=== PATIENT | male | born 1955 | race Caucasian/White ===

== ENCOUNTER 2021-01-24 08:15 | Outpatient (REF) | payer MEDICARE, MEDICAID, SELFPAY ==
[2021-01-24 10:30] LABS: MANUAL DIFF FLAG NO
[2021-01-24 10:56] LABS: Basophils Absolute Auto 0.1 X10*3/uL (0.0-0.2); Eosinophils Absolute Auto 0.2 X10*3/uL (0.0-0.4); Eosinophils Percent Auto 1.9 % (0-4); Hematocrit 42.5 % (42-52); Hemoglobin 13.8 g/dl (14.0-18.0); Imm Gran Abs Auto 0.03 X10*3/uL (0.00-0.03); Imm Gran Pct Auto 0.4 % (0.0-0.4); Lymphocytes Absolute Auto 2.3 X10*3/uL (1.2-4.9); Mean Corpuscular HGB Conc 32.5 g/dl (31.0-36.0); Mean Corpuscular Hemoglobin 29.2 pg (27.0-33.0); Mean Corpuscular Volume 89.9 fL (80-98); Monocytes Absolute Auto 0.5 X10*3/uL (0.1-1.2); Monocytes Percent Auto 6.2 % (2-11); Neutrophils Absolute Auto 4.9 X10*3/uL (2.0-8.3); Neutrophils Percent Auto 61.5 % (45-73); Platelet Count 231 X10*3/uL (160-400); Red Blood Count 4.73 X10*6/uL (4.60-5.80)
[2021-01-24 11:01] LABS: Alanine Aminotransferase 15 U/L (0-40); Albumin Level 4.2 g/dL (3.5-5.0); Alkaline Phosphatase 52 U/L (39-117); Anion Gap 13 (12-20); Aspartate Amino Transferase 17 U/L (5-37); Bilirubin Total 0.7 mg/dL (0.0-1.0); Blood Urea Nitrogen 16 mg/dL (9-16); Calcium 9.3 mg/dL (8.4-10.2); Carbon Dioxide 25 mmol/L (22-29); Chloride 105 mmol/L (96-108); Cholesterol 139 mg/dL; Estimated Glomerular Filt Rate 59; Glucose Fasting 94 mg/dL (60-99); HDL Cholesterol 51 mg/dL; LDL Cholesterol Calculated 75 mg/dl; Potassium 4.3 mmol/L (3.3-5.1); Sodium 139 mmol/L (135-145); Total Protein 6.9 g/dL (6.5-8.0); Triglycerides 65 mg/dL
[2021-01-24 11:11] LABS: TSH reflex Free T4 0.65 uIU/mL (0.32-4.0)
[2021-01-24 12:29] LABS: Prostate Specific Antigen Scr 6.51 ng/mL (<0.05-4.0)
[2021-01-24 13:59] LABS: Glucose Urine UA NEG (NEG); Leukocyte Esterase Urine NEG (NEG); Nitrite Urine NEG (NEG); Urine Blood NEG (NEG); Urine Ketones NEG (NEG); Urine Protein NEG (NEG-TRACE)
[2021-01-24 14:04] LABS: Appearance Urine CLEAR; Color Urine YELLOW
== END 2021-01-24 08:16 | disposition home or self-care (01) ==
LOC: HO.WFDLDS 08:15
PROVIDERS: Visit Provider Family Medicine
DX: Z00.00 Encounter for general adult medical examination without abnormal findings (principal); N40.1 Benign prostatic hyperplasia with lower urinary tract symptoms; R33.8 Other retention of urine; Z12.5 Encounter for screening for malignant neoplasm of prostate
CPT/HCPCS: 36415; 80053; 80061; 81003; 84153; 84443; 85025

== ENCOUNTER → 2021-02-01 14:02 | Outpatient (BNVA) | payer MEDICARE, BC, SELFPAY | PROVIDERS: PCP Family Medicine; Referring Provider Family Medicine; Visit Provider Internal Medicine Cardiovascular Disease | DX: Z01.810 Encounter for preprocedural cardiovascular examination (principal); R94.31 Abnormal electrocardiogram [ECG] [EKG] | CPT/HCPCS: 93005; 99202 ==

== ENCOUNTER → 2021-02-03 12:49 | Outpatient (REF) | payer MEDICARE, BC, SELFPAY ==
--- NOTE | 2021-02-03 12:54 | CA_ITS ---
Transthoracic Echocardiogram Patient (Last, First, Middle): Oumar Rucker, Gender: Male Date of : 1955 Age: 66 Procedure Date: 02/03/2021 Procedure Type: Transthoracic Echocardiogram Location: OP Height: 177.8 cm Weight: 90.72 kg BSA: 2.09 m2 Heart Rate: bpm BP: 120 / 72 mmHg Saw Tailer: ROSALINA Referring MD: Jasen Arias MD Boilermaker: Sixto Anne MD Symptoms: R94.31 - Abnormal electrocardiogram [ECG] [EKG] Study Quality: Fair ECG Rhythm: Sinus Conclusions: - Essentially normal study Findings Left Ventricle Normal left ventricular size, thickness, and systolic function. The visually estimated ejection fraction is between 55-60%. Spectral Doppler is indicative of a normal filling pattern. Right Ventricle Normal right ventricular cavity size and systolic function. Atria The left atrium is normal in size. There is a mobile atrial septum noted. There is no evidence of interatrial shunt. The right atrium is normal in size. Aortic Valve Normal aortic valve structure and function. There is no aortic valve stenosis. There is no aortic valve regurgitation. Mitral Valve Normal mitral valve structure and function. There is trace mitral valve regurgitation. There is no mitral valve stenosis. Pulmonic Valve The pulmonic valve is likely normal. There is trace pulmonic valve regurgitation. Tricuspid Valve Normal tricuspid valve structure. There is trace tricuspid valve regurgitation. The right ventricular systolic pressure is normal. The right ventricular systolic pressure is 30 mmHg. Normal right atrial pressure. There is no evidence of pulmonary hypertension. Great Vessels All visible segments of the aorta are normal in size. The pulmonary artery was not well visualized. Venous The inferior vena cava is normal in size and collapses greater than 50% with inspiration. Pericardium/Pleural There is no evidence of pericardial effusion. Prior Study Comparison No prior study available for comparison. Measurements M-Mode Liner Measurements Normals - Women/Men AOV Cusps: 2.60 1.5-2.6 cm/m2 2D Linear Measurements IVSd: 0.54 0.6-0.9/0.6-1.0 cm LVIDd: 5.51 3.9-5.3/4.2-5.9 cm LVIDd Index: 2.64 2.4-3.2/2.2-3.1 cm/m2 LVIDs: 3.88 2.0-3.6 cm LVPWd: 0.68 0.7-1.1 cm Ao Root: 3.30 2.1-3.5 cm LA Diam: 3.60 2.7-3.8/3.0-4.0 cm LAIDs Index: 1.72 1.5-2.3 cm/m2 LV Mass: 143.89 67-162/88-224 g LV Mass Index: 68.85 43-95/49-115 g/m2 LVOT Diam: 2.20 3.0+(-)1.3 cm 2D Systolic Function EF 4C: 47.70 >55% EF 2C: 48.90 >55% Mitral Valve MV Pk E: 0.75 MV PK A: 0.74 MV Decel Time: 267.00 E/A: 1.00 E'Lateral: 10.30 E'Medial: 5.11 E/E' Med: 14.60 E/E' Lat: 7.20 PHT: 78.00 MVA PHT: 2.82 Decel [place]: 2.80 Aortic Valve AoV Pk Ru: 1.54 AoV Mn Ru: 1.01 AoV VTI: 0.32 AoV Pk Grad: 9.00 Aov Mn Grad: 5.00 CHARLY Cont.VTI: 2.47 LVOT LVOT Pk Ru: 0.99 LVOT Mn Ru: 0.63 LVOT VTI: 0.21 LVOT Pk Grad: 4.00 LVOT Mn Grad: 2.00 LVOT Diam: 2.20 LVOT Area: 3.80 Diastolic Function MV Pk E: 0.75 MV Pk A: 0.74 E/A: 1.00 E'Medial: 5.11 E/E' Med: 14.60 E' Laterial: 10.30 E/E' Lat: 7.20 Tricuspid Valve TR Pk Ru: 2.37 TR Pk Grad: 22.00 RA Press: 8.00 RVSP: 30.00 Great Vessels Aorta Ao Root-2D: 3.30 2.0-3.7 cm Ao Asc: 3.50 2.1-3.4 cm Ao Arch: 2.90 Pulmonary Valve PV Pk Ru: 1.14 Peak PV Grad: 5.00 Updated in Other Vendor System with Status of Final Sixto Anne MD electronically signed on 02/04/2021 1:24:54 PM with status of Final
== END ==
LOC: HO.CARD 12:49
PROVIDERS: PCP Family Medicine; Visit Provider Family Medicine
DX: R94.31 Abnormal electrocardiogram [ECG] [EKG] (principal)
CPT/HCPCS: 93306

== ENCOUNTER 2021-06-16 09:15 | Outpatient (REF) | payer MEDICARE, SELFPAY ==
[2021-06-16 11:36] LABS: Hematocrit 44.9 % (42-52); Hemoglobin 14.8 g/dl (14.0-18.0); Mean Corpuscular Hemoglobin 29.1 pg (27.0-33.0); Mean Corpuscular Volume 88.2 fL (80-98); Mean Platelet Volume 10.8 fL (9.4-12.4); Platelet Count 223 X10*3/uL (160-400); Red Blood Count 5.09 X10*6/uL (4.60-5.80); Red Cell Distribution Width 12.3 % (11.0-16.0); White Blood Count 8.8 X10*3/uL (4.8-10.8)
[2021-06-16 12:00] LABS: Anion Gap 14 (12-20); Blood Urea Nitrogen 14 mg/dL (9-16); Calcium 9.7 mg/dL (8.4-10.2); Carbon Dioxide 24 mmol/L (22-29); Chloride 107 mmol/L (96-108); Estimated Glomerular Filt Rate > 60; Glucose Fasting 95 mg/dL (60-99); Potassium 4.5 mmol/L (3.3-5.1); Sodium 140 mmol/L (135-145)
== END 2021-06-16 09:16 | disposition home or self-care (01) ==
LOC: HO.WFDLDS 09:15
PROVIDERS: Visit Provider Hospitalist
DX: R03.0 Elevated blood-pressure reading, without diagnosis of hypertension (principal); R53.83 Other fatigue; Z87.448 Personal history of other diseases of urinary system
CPT/HCPCS: 36415; 80048; 85027

== ENCOUNTER 2022-05-25 09:03 | Outpatient (REF) | payer MEDICARE, SELFPAY ==
[2022-05-25 11:11] LABS: MANUAL DIFF FLAG NO
[2022-05-25 11:24] LABS: Basophils Absolute Auto 0.1 X10*3/uL (0.0-0.2); Basophils Percent Auto 0.9 % (0-2); Eosinophils Absolute Auto 0.3 X10*3/uL (0.0-0.4); Eosinophils Percent Auto 2.9 % (0-4); Hematocrit 46.1 % (42.0-52.0); Hemoglobin 15.4 g/dl (14.0-18.0); Imm Gran Abs Auto 0.02 X10*3/uL (0.00-0.03); Imm Gran Pct Auto 0.2 % (0.0-0.4); Lymphocytes Absolute Auto 2.6 X10*3/uL (1.2-4.9); Lymphocytes Percent Auto 29.7 % (20-40); Mean Corpuscular HGB Conc 33.4 g/dl (31.0-36.0); Mean Corpuscular Hemoglobin 29.1 pg (27.0-33.0); Mean Platelet Volume 10.5 fL (9.4-12.4); Monocytes Absolute Auto 0.6 X10*3/uL (0.1-1.2); Monocytes Percent Auto 6.5 % (2-11); Neutrophils Absolute Auto 5.3 x10*3/uL (2.0-8.3); Neutrophils Percent Auto 59.8 % (45-73); Platelet Count 255 X10*3/uL (160-400); White Blood Count 8.9 X10*3/uL (4.8-10.8)
[2022-05-25 11:42] LABS: Appearance Urine Clear; Color Urine Yellow; Glucose Urine UA Negative (Negative); Leukocyte Esterase Urine Negative (Negative); Nitrite Urine Negative (Negative); Urine Blood Negative (Negative); Urine Ketones Negative (Negative); Urine Protein Negative (Neg-Trace)
[2022-05-25 11:45] LABS: Alanine Aminotransferase 22 U/L (0-40); Albumin Level 4.4 g/dL (3.5-5.0); Alkaline Phosphatase 51 U/L (39-117); Anion Gap 14 (12-20); Aspartate Amino Transferase 17 U/L (5-37); Bilirubin Total 0.6 mg/dL (0.0-1.0); Blood Urea Nitrogen 17 mg/dL (9-16); Calcium 9.8 mg/dL (8.4-10.2); Carbon Dioxide 25 mmol/L (22-29); Chloride 104 mmol/L (96-108); Cholesterol 172 mg/dL; Estimated Glomerular Filt Rate 58; Glucose Fasting 93 mg/dL (60-99); HDL Cholesterol 54 mg/dL; LDL Cholesterol Calculated 102 mg/dl; Potassium 4.4 mmol/L (3.3-5.1); Sodium 139 mmol/L (135-145); Triglycerides 83 mg/dL
[2022-05-25 12:06] LABS: Prostate Specific Antigen Scr 2.01 ng/mL (<0.05-4.0); TSH reflex Free T4 1.07 uIU/mL (0.32-4.0)
[2022-05-25 12:24] LABS: Microalbumin Urine < 5.0 mg/L
== END 2022-05-25 09:04 | disposition home or self-care (01) ==
LOC: HO.WFDLDS 09:03
PROVIDERS: Visit Provider Family Medicine
DX: Z00.00 Encounter for general adult medical examination without abnormal findings (principal); Z12.5 Encounter for screening for malignant neoplasm of prostate; I10 Essential (primary) hypertension
CPT/HCPCS: 36415; 80053; 80061; 81003; 82043; 84153; 84443; 85025

== ENCOUNTER 2023-03-15 10:59 | Outpatient (AMB) | payer MEDICARE, SELFPAY ==
--- NOTE | 2023-03-15 11:21 | A.OFFPC_ITS ---
Vital Signs 03/15/23 11:22 Height 5 ft 10 in Weight 195 lb BMI 28.0 BP 120/72 Blood Pressure Location Lt brachial Position Sitting Pulse 71 Pulse Source Pulse Oximeter Pulse Oximetry (%) 99 Oxygen Delivery Method Room Air Intake Visit Reasons: [facility] 03/07/23 - Potential Stroke Intake Note: Patient is here for hospital follow up, he states he had a high fever, deleirious, after many tests, think he may not have had a stroke. He may have had an infection. Allergies No Known Allergies Allergy (Verified 03/15/23 11:28) Tobacco use date assessed: 03/15/23 Fall risk assessment: No Falls in past year Last assessed Fall Risk: 03/15/23 Dental Screening Dental Screen Date: 03/15/23 Did you have a dental visit in the last 12 months?: Yes Did you have a dental problem in the last 6 months where you did not have access to dental care?: No Was dental information given to patient?: No HPI [facility] 03/07/23 - Potential Stroke HPI Details Pt present to f/u [facility] visit 03/07/23 for a potential stroke. He had presented to ED for possible strokelike symptoms. Fire dept. had found pt in his bedroom with garbled speech, L sided facial droop and L sided leg weakness. Pt had acute delirium of unknown etiology. He reports they had sent him home with antibiotics. Blood pressure today is 120/72. He is on lisinopril 10mg daily. [facility] Family History Mother No problems noted. Father No problems noted. Social History Housing: Other Housing Other:: Mobile home Alcohol intake: former Patient Tobacco Use Status: Former Tobacco user e-Cigarette/Vaping Use: Never Used Second Hand Smoke Exposure: No service: No Current occupational status: retired Current occupational exposures/hazards: No Cognitive needs: No Hearing needs: No Vision needs: No Questionnaire PHQ-9 Over the last 2 weeks, how often have you been bothered by any of the following problems? 1. Little interest or pleasure in doing things: nearly every day 2. Feeling down, depressed, or hopeless: not at all 3. Trouble falling or staying asleep, or sleeping too much: nearly every day 4. Feeling tired or having little energy: nearly every day 5. Poor appetite or overeating: nearly every day 6. Feeling bad about yourself - or that you are a failure or have let yourself or your family down: not at all 7. Trouble concentrating on things, such as reading the newspaper or watching television: not at all 8. Moving or speaking so slowly that other people could have noticed. Or the opposite - being so fidgety or restless that you have been moving around a lot more than usual: not at all 9. Thoughts that you would be better off or of hurting yourself in some way: not at all Total score: 12 Source: Developed by Drs. Aniceto wSift, Mila Bishop, Jeovanny Treviño and colleagues, with an educational bandar from [employer]. Thrive Questionnaire Date Thrive assessed: 11/03/22 I am a: Patient What is your living situation today?: I have a steady place to live Within the past 12 months, did the food you bought not last and you didn't have the money to get more?: Never true Within the past 12 months, did you worry whether your food would run out before you got money to buy more?: Never true Do you have trouble paying for medicines?: No Do you have trouble getting transportation to medical appointments?: No Do you have trouble paying your heating and electricity bill?: No Do you have trouble taking care of your child, family member or friend?: No Do you have trouble with day-to-day activities such as bathing, preparing meals, shopping, managing finances, etc.?: No Are you currently unemployed and looking for a job?: No Are you interested in more education?: No AUDIT C Alcohol Use Questionnaire (AUDIT-C) 1. How often do you have a drink containing alcohol?: Never 3. How often do you have six or more drinks on one occasion?: Never Total Score: 0 UNRULY-7 AMB Questionnaire UNRULY-7 Date UNRULY - 7 assessed: 11/03/22 Feeling nervous, anxious, or on edge: 0 = Not at all Not being able to stop or control worryin = Not at all Worrying too much about different things: 0 = Not at all Trouble relaxin = Not at all Being so restless that it is hard to sit still: 0 = Not at all Becoming easily annoyed or irritable: 0 = Not at all Feeling afraid as if something awful might happen: 0 = Not at all Total UNRULY-7 score (0-4 normal; 5-9 mild; 10-14 moderate; 15-21 severe): 0 Source: Developed by Drs. Aniceto Swift, Mila Bishop, Jeovanny Treviño and colleagues, with an educational bandar from [employer]. Review of Systems Const Denies chills, Denies fatigue, Denies fever(s), Denies headache(s) and Denies weakness ENT Denies dizziness and Denies headache(s) Card Denies dyspnea Resp Denies cough, Denies dyspnea, Denies wheezing and Denies other (shortness of breath) Musc Denies numbness and Denies tingling Neuro Denies dizziness, Denies headache(s), Denies numbness, Denies tingling and Denies weakness Psych Denies anxiety and Denies depression Endo Denies fatigue Aller/Immun Denies wheezing Physical exam (Primary Care) Vital Signs: Last Vital Signs Pulse 71 03/15/23 11:22 BP 120/72 03/15/23 11:22 Pulse Ox 99 03/15/23 11:22 Oxygen Delivery Method Room Air 03/15/23 11:22 BMI result Body Mass Index 28.0 Tobacco/Smoking Status: Tobacco use Status Tobacco use date assessed 03/15/23 03/15/23 11:29 Patient Tobacco Use Status Former Tobacco user 03/15/23 11:29 e-Cigarette/Vaping Use Never Used 03/15/23 11:29 PHQ-9: PHQ-9 Score PHQ-9: Total score 12 03/15/23 12:24 Thrive Assessment: Date of Thrive Assessment Date Thrive assessed 11/03/22 03/15/23 11:29 Const General: well developed; No acute distress Nutritional Appearance: well nourished Orientation/consciousness: patient oriented x3 HENMT Head: Yes normocephalic and Yes atraumatic Eyes General: appearance normal, both eyes and all related structures Pupils: Equal, round and reactive pupils present EOM: EOMs intact bilaterally Resp Effort & Inspection: normal respiratory effort Neuro General: patient oriented x3 and gait normal Cranial nerves: Yes Equal, round and reactive pupils present Psych Affect: normal affect Assessment and Plan Assessment & Plan (1) Encephalopathy: Code(s): G93.40 - Encephalopathy, unspecified Plan: Patient presents for hospital discharge follow-up after being brought to the hospital with altered mental status and concern for CVA. Ultimately diagnosed with encephalopathy and this was apparently secondary to a bacterial infection after dental work. Question of sepsis as well. I do not have his hospital discharge follow-up at this time. Patient says he was treated with IV antibiotics and discharged with oral antibiotics which she has completed. He is feeling well. This appears resolved (2) Altered mental status: Code(s): R41.82 - Altered mental status, unspecified Plan: As above Resolved (3) Hypertension: Code(s): I10 - Essential (primary) hypertension Plan: Blood pressure is controlled. Goal is less than 140/90 Continue current medication regimen Coding Level of Care Code Est Pt Level 3 (66831) Diagnoses Encephalopathy G93.40 Altered mental status R41.82 Hypertension I10
[2023-03-15 11:22] VITALS: BP 120/72; PULSE 71; O2SAT 99; BMI 28.0
== END 2023-03-15 12:38 | disposition home or self-care (01) ==
PROVIDERS: PCP Family Medicine; Visit Provider Family Medicine
DX: G93.40 Encephalopathy, unspecified (principal); R41.82 Altered mental status, unspecified; I10 Essential (primary) hypertension
CPT/HCPCS: 99213

== ENCOUNTER 2023-05-24 09:21 | Outpatient (REF) | payer MEDICARE, SELFPAY ==
[2023-05-24 11:36] LABS: MANUAL DIFF FLAG NO
[2023-05-24 11:48] LABS: Basophils Absolute Auto 0.1 X10*3/uL (0.0-0.2); Basophils Percent Auto 1.1 % (0-2); Eosinophils Absolute Auto 0.4 X10*3/uL (0.0-0.4); Eosinophils Percent Auto 4.5 % (0-4); Hematocrit 44.9 % (42.0-52.0); Hemoglobin 14.9 g/dl (14.0-18.0); Imm Gran Abs Auto 0.03 X10*3/uL (0.00-0.03); Imm Gran Pct Auto 0.4 % (0.0-0.4); Lymphocytes Absolute Auto 2.2 X10*3/uL (1.2-4.9); Lymphocytes Percent Auto 25.6 % (20-40); Mean Corpuscular HGB Conc 33.2 g/dl (31.0-36.0); Mean Corpuscular Hemoglobin 29.4 pg (27.0-33.0); Mean Corpuscular Volume 88.6 fL (80.0-98.0); Mean Platelet Volume 10.5 fL (9.4-12.4); Monocytes Absolute Auto 0.6 X10*3/uL (0.1-1.2); Neutrophils Absolute Auto 5.2 x10*3/uL (2.0-8.3); Neutrophils Percent Auto 61.4 % (45-73); Platelet Count 277 X10*3/uL (160-400); Red Blood Count 5.07 X10*6/uL (4.60-5.80); Red Cell Distribution Width 12.9 % (11.0-16.0); White Blood Count 8.5 X10*3/uL (4.8-10.8)
[2023-05-24 12:20] LABS: Alanine Aminotransferase 16 U/L (0-40); Albumin Level 4.3 g/dL (3.5-5.0); Alkaline Phosphatase 44 U/L (39-117); Anion Gap 11 (12-20); Aspartate Amino Transferase 14 U/L (5-37); Bilirubin Total 0.5 mg/dL (0.0-1.0); Blood Urea Nitrogen 16 mg/dL (9-16); Calcium 9.8 mg/dL (8.4-10.2); Carbon Dioxide 25 mmol/L (22-29); Chloride 107 mmol/L (96-108); Cholesterol 168 mg/dL (<200); Estimated Glomerular Filt Rate > 60; Glucose Fasting 99 mg/dL (60-99); HDL Cholesterol 60 mg/dL (>40); LDL Cholesterol Calculated 97 mg/dL (<100); Potassium 4.4 mmol/L (3.3-5.1); Sodium 139 mmol/L (135-145); Total Protein 7.3 g/dL (6.5-8.0); Triglycerides 56 mg/dL (<150)
[2023-05-24 12:21] LABS: Appearance Urine Clear; Color Urine Yellow; Glucose Urine UA Negative (Negative); Leukocyte Esterase Urine Negative (Negative); Nitrite Urine Negative (Negative); Urine Blood Negative (Negative); Urine Ketones Negative (Negative); Urine Protein Negative (Neg-Trace)
[2023-05-24 12:24] LABS: TSH reflex Free T4 1.03 uIU/mL (0.32-4.0)
[2023-05-24 12:38] LABS: Folate 11.5 ng/mL (> or = 4.0); Prostate Specific Antigen Scr 3.44 ng/mL (<0.05-4.0); Vitamin B12 456 pg/mL (200-900)
[2023-05-24 13:06] LABS: Creatinine Urine 32.83 mg/dL; Microalbumin Urine < 5.0 mg/L
== END 2023-05-24 09:22 | disposition home or self-care (01) ==
LOC: HO.WFDLDS 09:21
PROVIDERS: Visit Provider Family Medicine
DX: Z00.00 Encounter for general adult medical examination without abnormal findings (principal); I10 Essential (primary) hypertension; E53.8 Deficiency of other specified B group vitamins; Z12.5 Encounter for screening for malignant neoplasm of prostate
CPT/HCPCS: 36415; 80053; 80061; 81003; 82043; 82570; 82607; 82746; 84153; 84443; 85025

== ENCOUNTER 2023-12-13 15:24 | Outpatient (AMB) | payer MEDICARE, SELFPAY ==
--- NOTE | 2023-12-13 15:27 | A.OFFPC_ITS ---
Vital Signs 12/13/23 15:31 Height 5 ft 10 in Weight 207 lb BMI 29.7 BP 122/70 Blood Pressure Location Lt brachial Position Sitting Pulse 63 Pulse Source Pulse Oximeter Pulse Oximetry (%) 97 Oxygen Delivery Method Room Air Intake Visit Reasons: referral for colonoscopy Intake Note: Patient is here for referral for colonoscopy, and would like to talk about prescription for viagra. Allergies No Known Allergies Allergy (Verified 12/13/23 15:33) Medication List - Last Reconciled 12/13/23 by Jasen Arias MD lisinopril 10 mg PO DAILY 30 days Tobacco use date assessed: 12/13/23 Fall risk assessment: No Falls in past year Last assessed Fall Risk: 12/13/23 Dental Screening Dental Screen Date: 12/13/23 Did you have a dental visit in the last 12 months?: Yes Did you have a dental problem in the last 6 months where you did not have access to dental care?: No Was dental information given to patient?: Patient has dentist HPI referral for colonoscopy HPI Details 68 y/o male presents to f/u [facility]. Pt states he would like to talk about a prescription for viagra. Blood pressure today 122/70. He is on lisinopril 10mg daily. [facility] Family History Mother No problems noted. Father No problems noted. Social History Housing: Other Housing Other:: Mobile home Alcohol intake: former Patient Tobacco Use Status: Former Tobacco user e-Cigarette/Vaping Use: Never Used Second Hand Smoke Exposure: No service: No Current occupational status: retired Current occupational exposures/hazards: No Cognitive needs: No Hearing needs: No Vision needs: No Questionnaire Thrive Questionnaire Date Thrive assessed: 11/03/22 UNRULY-7 AMB Questionnaire UNRULY-7 Date UNRULY - 7 assessed: 11/03/22 Source: Developed by Drs. Aniceto Swift, Mila Bishop, Jeovanny Treviño and colleagues, with an educational bandar from [employer]. Review of Systems Const Denies chills, Denies fatigue, Denies fever(s), Denies headache(s) and Denies weakness ENT Denies dizziness and Denies headache(s) Card Denies chest pain, Denies lightheadedness, Denies dyspnea and Denies other (Palpitations) Resp Denies cough, Denies dyspnea, Denies wheezing and Denies other ( shortness of breath) Musc Denies numbness and Denies tingling Neuro Denies dizziness, Denies headache(s), Denies numbness, Denies tingling, Denies paresthesias and Denies weakness Psych Denies anxiety and Denies depression Endo Denies fatigue Aller/Immun Denies wheezing Physical exam (Primary Care) Vital Signs: Last Vital Signs Pulse 63 12/13/23 15:31 BP 122/70 12/13/23 15:31 Pulse Ox 97 12/13/23 15:31 Oxygen Delivery Method Room Air 12/13/23 15:31 BMI result Body Mass Index 29.7 Tobacco/Smoking Status: Tobacco use Status Tobacco use date assessed 12/13/23 12/13/23 15:36 Patient Tobacco Use Status Former Tobacco user 12/13/23 15:31 e-Cigarette/Vaping Use Never Used 12/13/23 15:31 Thrive Assessment: Date of Thrive Assessment Date Thrive assessed 11/03/22 12/13/23 15:31 Const General: no acute distress and well developed Nutritional Appearance: well nourished Orientation/consciousness: patient oriented x3 HENMT Head: Yes normocephalic and Yes atraumatic Eyes General: appearance normal, both eyes and all related structures Pupils: Equal, round and reactive pupils present EOM: EOMs intact bilaterally Resp Effort & Inspection: normal respiratory effort Auscultation: clear to auscultation bilaterally Cardio Rate: regular rate Rhythm: regular rhythm Heart sounds: S1 normal heart sound present, S2 normal heart sound present, no gallops, no murmurs and no rubs Neuro General: patient oriented x3 and gait normal Cranial nerves: Yes Equal, round and reactive pupils present Psych Affect: normal affect Assessment and Plan Assessment & Plan (1) Erectile dysfunction: Code(s): N52.9 - Male erectile dysfunction, unspecified Plan: Patient?has?tried?Viagra?which?worked. Will?send?script Risks/benefits?discussed We?can?follow-up?at?his?next?visit (2) Screening for colon cancer: Code(s): Z12.11 - Encounter for screening for malignant neoplasm of colon Plan: Patient?had?a?colonoscopy?in?2019?and?was?advised?to?follow-up?in?5?years. Due?for?follow-up?so?I?have?referred?him?to?GI?at?[facility] [place] (3) Hypertension: Code(s): I10 - Essential (primary) hypertension Plan: Blood?pressure?is?controlled.??Goal?is?less?than?140/90 Patient?notes?that?his?blood?pressure?does?not?seem?to?worsen?much?when?he?does? not?take?the?medication. 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 Orders: Orders Comprehensive [place]. Panel Fast Today Z00.00 - Encounter for general adult medical examination without abnormal findings Complete Blood Count Auto Diff Today Z00.00 - Encounter for general adult medical examination without abnormal findings Lipid Panel Today Z00.00 - Encounter for general adult medical examination without abnormal findings UA and rflx microscopic Today Z00.00 - Encounter for general adult medical examination without abnormal findings Microalbumin, Random (w Creat) Today I10 - Essential (primary) hypertension TSH reflex Free T4 Today Z00.00 - Encounter for general adult medical examina tion without abnormal findings Prostate Specific Antigen Scr Today Z12.5 - Encounter for screening for malignant neoplasm of prostate Referrals Gastroenterology Referral Z12.11 - Encounter for screening for malignant neoplasm of colon Medications: New sildenafil (Viagra) administer 30 minutes to 4 hours before activity 100 mg PO DAILY 30 days PRN 30 tabs 4RF sexual activity Coding Level of Care Code Est Pt Level 4 (87829) Diagnoses Erectile dysfunction N52.9 Screening for colon cancer Z12.11 Hypertension I10
[2023-12-13 15:31] VITALS: BP 122/70; PULSE 63; O2SAT 97; BMI 29.7
== END 2023-12-13 16:28 | disposition home or self-care (01) ==
PROVIDERS: PCP Family Medicine; Visit Provider Family Medicine
DX: N52.9 Male erectile dysfunction, unspecified (principal); Z12.11 Encounter for screening for malignant neoplasm of colon; I10 Essential (primary) hypertension
CPT/HCPCS: 99214

== ENCOUNTER 2024-02-25 10:25 | Outpatient (AMB) | payer MEDICARE, SELFPAY ==
--- NOTE | 2024-02-25 10:27 | A.OFFPC_ITS ---
Vital Signs 02/25/24 10:28 Height 5 ft 10 in Weight 205 lb BMI 29.4 BP 128/70 Blood Pressure Location Lt brachial Position Sitting Pulse 71 Pulse Source Pulse Oximeter Pulse Oximetry (%) 97 Oxygen Delivery Method Room Air Intake Visit Reasons: Extended exam with f/u labs and health maint Intake Note: Patient is here for extended exam, and follow up on labs and medication, but did not get his labs done. Allergies No Known Allergies Allergy (Verified 12/13/23 15:33) Tobacco use date assessed: 12/13/23 Fall risk assessment: No Falls in past year Last assessed Fall Risk: 02/25/24 Dental Screening Dental Screen Date: 12/13/23 HPI Extended exam with f/u labs and health maint HPI Details 69 y/o male presents for an extended exa m with f/u labs and health maintenance. No recent labs to review. Blood pressure today 128/70. He is on lisinopril 10mg daily. Trialed sildenafil for ED which he notes does help. He does note he thinks the dose is a little high for him due to rhinitis. HPI Comments History of Present Illness Details Documentation assistance for Jasen Arias MD, was provided by Jairon Singer, Reproduction Production Manager on 02/25/2024 at 10:48 AM EST. I, Dr. Arias, have read, observed, and verified documentation. [facility] [place] Family History Mother No problems noted. Father No problems noted. Social History Housing: Other Housing Other:: Mobile home Alcohol intake: former Patient Tobacco Use Status: Former Tobacco user e-Cigarette/Vaping Use: Never Used Second Hand Smoke Exposure: No service: No Current occupational status: retired Current occupational exposures/hazards: No Cognitive needs: No Hearing needs: No Vision needs: No Questionnaire Thrive Questionnaire Date Thrive assessed: 11/03/22 UNRULY-7 AMB Questionnaire UNRULY-7 Date UNRULY - 7 assessed: 11/03/22 Source: Developed by Drs. Aniceto Swift, Mila Bishop, Jeovanny Treviño and colleagues, with an educational bandar from [employer]. Review of Systems Const Denies chills, Denies fatigue, Denies fever(s), Denies headache(s) and Denies weakness Eyes Denies change in vision ENT Denies dizziness, Denies headache(s), Denies hearing loss, Denies nasal estefania estion, Denies sinus pain, Denies sinus pressure and Denies sore throat Card Denies chest pain, Denies lightheadedness, Denies dyspnea and Denies other (palpitations) Resp Denies cough, Denies dyspnea and Denies wheezing GI Denies abdominal pain, Denies melena, Denies hematochezia, Denies change in bowel habits, Denies dyspepsia and Denies nausea Denies hematuria and Denies dysuria Musc Denies abnormal gait, Denies myalgias, Denies arthralgias, Denies numbness and Denies tingling Skin/Breast Denies rash, Denies unusual bruising and Denies wounds Neuro Denies abnormal gait, Denies dizziness, Denies headache(s), Denies memory loss, Denies numbness, Denies Sensory deficit (Neuro), Denies tingling and Denies weakness Psych Denies anxiety, Denies depression and Denies memory loss Endo Denies cold intolerance, Denies fatigue, Denies heat intolerance, Denies polydipsia and Denies polyuria Jamey/Lymph Denies easy bleeding and Denies easy bruising Aller/Immun Denies wheezing Physical exam (Primary Care) Vital Signs: Last Vital Signs Pulse 71 02/25/24 10:28 BP 128/70 02/25/24 10:28 Pulse Ox 97 02/25/24 10:28 Oxygen Delivery Method Room Air 02/25/24 10:28 BMI result Body Mass Index 29.4 Tobacco/Smoking Status: Tobacco use Status Tobacco use date assessed 12/13/23 02/25/24 10:30 Patient Tobacco Use Status Former Tobacco user 02/25/24 10:30 e-Cigarette/Vaping Use Never Used 02/25/24 10:30 Thrive Assessment: Date of Thrive Assessment Date Thrive assessed 11/03/22 02/25/24 10:30 Const General: no acute distress, well developed, alert and awake Nutritional Appearance: well nourished Orientation/consciousness: patient oriented x3 HENMT Head: Yes normocephalic and Yes atraumatic Ears: hearing grossly normal bilaterally and TM's normal bilaterally General nose exam: Normal external nose present and Normal nares present Mouth: Normal oral and palatal mucosa present and moist mucous membranes Teeth and gingiva: dentition normal Throat: Yes posterior oropharynx normal Eyes General: appearance normal, both eyes and all related structures Pupils: Equal, round and reactive pupils present and Pupil accommodation reflex normal EOM: EOMs intact bilaterally Neck Neck: Yes normal visual inspection, Yes no lymphadenopathy and Yes trachea midline Thyroid: Thyroid normal Carotids: no bruits Lymphatic: no lymphadenopathy noted Chest Chest palpation & inspection: normal inspection of the chest Resp Effort & Inspection: normal respiratory effort Auscultation: clear to auscultation bilaterally Cardio Rate: regular rate Rhythm: regular rhythm Heart sounds: S1 normal heart sound present, S2 normal heart sound present, no gallops, no murmurs and no rubs Bruits: no abdominal aortic bruits and no carotid bruits GI Palpation (GI): No Abdominal aortic bruit present, Soft to palpation, nontender, No hepatosplenomegaly present and No Rebound tenderness present Auscultation: normal bowel sounds General: Yes no CVA tenderness Back/Spine/Pelvis Back: no CVA tenderness Cervical Spine: cervical ROM normal and No Cervical spine tenderness Thoracic/Lumbar Spine: thoraco-lumbar ROM normal, No pain with thoraco-lumbar ROM, No thoracic spinal tenderness and No lumbar spinal tenderness Skin Lesions: no lesions Rashes: no rashes Trauma: no lacerations or abrasions Wounds: no wounds Nails: normal Neuro General: patient oriented x3 Cranial nerves: Yes Equal, round and reactive pupils present Cognition (Neuro): normal cognition Gait exam (Neuro): Normal gait present Motor exam (neuro): 5/5 motor strength present throughout Sensory Exam: No Sensory deficit (Neuro) Deep tendon reflexes (DTR's): Right patellar reflex intensity grade: 2+ and Left patellar reflex intensity grade: 2+ Extrem General: Yes normal to inspection and No edema Psych Appearance: grossly normal Affect: normal affect Attitude: cooperative Thought process: Normal thought process present Assessment and Plan Assessment & Plan (1) Hypertension: Code(s): I10 - Essential (primary) hypertension Plan: Blood?pressure?is?controlled.??Goal?is?less?than?140/90. H owever,?patient?notes?a?dry?cough/tickle?in?his?throat?which?he?associates?with? lisinopril. Will?switch?to?losartan.??May?need?to?adjust?dose (2) Erectile dysfunction: Code(s): N52.9 - Male erectile dysfunction, unspecified Plan: Has?used?sildenafil?which?he?notes?does?help?but?has?multipl e?adverse?effects?such?as?sinus?pain?and?pressure Has?tried?Cialis?in?the?past?and?says?this?helps?with?fewer?side?effects?though? he?does?note?some?calf?cramping?at?20?mg?tablets. Will?trial?Cialis?10?mg (3) Screening for prostate cancer: Code(s): Z12.5 - Encounter for screening for malignant neoplasm of prostate Plan: Patient?notes?that?he?has?had?some?elevated?PSA?levels?in?the?past Recheck?the (4) Screening for colon cancer: Code(s): Z12.11 - Encounter for screening for malignant neoplasm of colon Plan: He?is?scheduled?for?screening?for?colon?cancer?in?April. (5) Adult general medical exam: Code(s): Z00.00 - Encounter for general adult medical examination without abnormal findings Plan: 69-year-old?male?presents?for?an?extended?exam Orders: Orders Lipid Panel Today Z00.00 - Encounter for general adult medical examination without abnormal findings Microalbumin, Random (w Creat) Today I10 - Essential (primary) hypertension Complete Blood Count Auto Diff Today Z00.00 - Encounter for general adult medical examination without abnormal findings TSH reflex Free T4 Today Z00.00 - Encounter for general adult medical examination without abnormal findings UA and rflx microscopic Today Z00.00 - Encounter for general adult medical examination without abnormal findings Comprehensive [place]. Panel Fast Today Z00.00 - Encounter for general adult medical examination without abnormal findings Prostate Specific Antigen Scr Today Z12.5 - Encounter for screening for malignant neoplasm of prostate, Z87.898 - Personal history of other specified conditions Medications: New losartan 25 mg PO DAILY 90 days 90 tabs 3RF tadalafil (Cialis) administer approximately 30min before sexual activity; do not use more than 1 dose per 24hrs 10 mg PO DAILY 30 days PRN 30 tabs 3RF sexual activity Discontinued sildenafil (Viagra) administer 30 minutes to 4 hours before activity Discontinued Reason: Doctor's Order 100 mg PO DAILY 30 days PRN 30 tabs 4RF sexual activity lisinopril Discontinued Reason: Doctor's Order 10 mg PO DAILY 30 days 30 tabs 0RF Coding Level of Care Code Est Pt Level 4 (68924) Diagnoses Hypertension I10 Erectile dysfunction N52.9 Screening for prostate cancer Z12.5 Screening for colon cancer Z12.11 Adult general medical exam Z00.00
[2024-02-25 10:28] VITALS: BP 128/70; PULSE 71; O2SAT 97; BMI 29.4
== END 2024-02-25 11:06 | disposition home or self-care (01) ==
PROVIDERS: PCP Family Medicine; Visit Provider Family Medicine
DX: I10 Essential (primary) hypertension (principal); N52.9 Male erectile dysfunction, unspecified; Z12.5 Encounter for screening for malignant neoplasm of prostate; Z12.11 Encounter for screening for malignant neoplasm of colon; Z00.00 Encounter for general adult medical examination without abnormal findings
CPT/HCPCS: 99214

== ENCOUNTER 2024-02-28 08:10 | Outpatient (REF) | payer MEDICARE, SELFPAY ==
[2024-02-28 11:33] LABS: Appearance Urine Clear; Color Urine Yellow; Glucose Urine UA Negative (Negative); Leukocyte Esterase Urine Negative (Negative); Nitrite Urine Negative (Negative); PH 5.5 (5.0-9.0); Specific Gravity - Urine 1.025 (1.005-1.025); Urine Blood Negative (Negative); Urine Ketones Negative (Negative); Urine Protein Negative (Neg-Trace)
[2024-02-28 11:40] LABS: MANUAL DIFF FLAG NO
[2024-02-28 11:46] LABS: Basophils Absolute Auto 0.1 X10*3/uL (0.0-0.2); Basophils Percent Auto 0.8 % (0-2); Eosinophils Absolute Auto 0.3 X10*3/uL (0.0-0.4); Eosinophils Percent Auto 3.7 % (0-4); Hematocrit 46.4 % (42.0-52.0); Hemoglobin 15.2 g/dl (14.0-18.0); Imm Gran Abs Auto 0.03 X10*3/uL (0.00-0.03); Imm Gran Pct Auto 0.4 % (0.0-0.4); Lymphocytes Percent Auto 25.2 % (20-40); Mean Corpuscular HGB Conc 32.8 g/dl (31.0-36.0); Mean Corpuscular Hemoglobin 29.2 pg (27.0-33.0); Mean Corpuscular Volume 89.2 fL (80.0-98.0); Mean Platelet Volume 10.3 fL (9.4-12.4); Monocytes Absolute Auto 0.5 X10*3/uL (0.1-1.2); Monocytes Percent Auto 6.7 % (2-11); Neutrophils Percent Auto 63.2 % (45-73); Platelet Count 234 X10*3/uL (160-400); Red Cell Distribution Width 12.9 % (11.0-16.0); White Blood Count 7.9 X10*3/uL (4.8-10.8)
[2024-02-28 12:24] LABS: Alanine Aminotransferase 15 U/L (0-40); Albumin Level 4.2 g/dL (3.5-5.0); Alkaline Phosphatase 42 U/L (39-117); Anion Gap 12 (12-20); Aspartate Amino Transferase 14 U/L (5-37); Bilirubin Total 0.6 mg/dL (0.0-1.0); Blood Urea Nitrogen 18 mg/dL (9-16); Calcium 9.6 mg/dL (8.4-10.2); Carbon Dioxide 25 mmol/L (22-29); Chloride 106 mmol/L (96-108); Cholesterol 154 mg/dL (<200); Estimated Glomerular Filt Rate > 60; Glucose Fasting 99 mg/dL (60-99); HDL Cholesterol 53 mg/dL (>40); LDL Cholesterol Calculated 92 mg/dL (<100); Sodium 139 mmol/L (135-145); Triglycerides 49 mg/dL (<150)
[2024-02-28 12:35] LABS: Creatinine Urine 155.21 mg/dL; Microalbum/Creatinine Ratio Ur 5.1 ug/mg cr (<30)
[2024-02-28 12:44] LABS: TSH reflex Free T4 0.89 uIU/mL (0.32-4.0)
[2024-02-28 12:45] LABS: Prostate Specific Antigen Scr 3.33 ng/mL (<0.05-4.0)
== END 2024-02-28 08:11 | disposition home or self-care (01) ==
LOC: HO.WFDLDS 08:10
PROVIDERS: Visit Provider Family Medicine
DX: Z00.00 Encounter for general adult medical examination without abnormal findings (principal); I10 Essential (primary) hypertension; Z12.5 Encounter for screening for malignant neoplasm of prostate; Z87.898 Personal history of other specified conditions
CPT/HCPCS: 36415; 80053; 80061; 81003; 82043; 82570; 84153; 84443; 85025

== ENCOUNTER 2024-04-10 13:28 | Outpatient (AMB) | payer MEDICARE, SELFPAY ==
--- NOTE | 2024-04-10 13:38 | MHC.PC.OV ---
Vital Signs 04/10/24 13:53 Height 5 ft 7.4 in Weight 201 lb 4 oz BMI 31.1 BP 120/70 Blood Pressure Location Lt brachial Position Sitting Respiration 18 Pulse 77 Pulse Source Pulse Oximeter Temp 97.6 F Temp Source Oral Pulse Oximetry (%) 77 L Oxygen Delivery Method Room Air Intake Visit Reasons: Fever for 6 days now Intake Note: patient states hes had a fever for 6days he had a dental procedure on the and hasnt been feeling well 3days after this. pt felt light headed fever ,nausea 100.5. he is currently still taking his antibiotics just incase it is an infection. Allergies No Known Allergies Allergy (Verified 04/10/24 13:44) Tobacco use date assessed: 12/13/23 Dental Screening Dental Screen Date: 12/13/23 HPI Fever for 6 days now HPI Details Pt presents today with complaints of a fever. Also discussing labs. Labs drawn 02/28/24. Reviewed labs with pt. Triglycerides 49. TC 154. LDL 92. HDL 53. PSA level 3.33. Had been elevated before at 6.51 on 01/24/21. Notes he had a dental procedure on the . He reports lightheadedness, fever, nausea. Denies any coughing/shortness of breath. [facility] Family History Mother No problems noted. Father No problems noted. Social History Housing: Other Housing Other:: Mobile home Alcohol intake: former Patient Tobacco Use Status: Former Tobacco user e-Cigarette/Vaping Use: Never Used Second Hand Smoke Exposure: No service: No Current occupational status: retired Current occupational exposures/hazards: No Cognitive needs: No Hearing needs: No Vision needs: No Questionnaire Thrive Questionnaire Date Thrive assessed: 11/03/22 UNRULY-7 AMB Questionnaire UNRULY-7 Date UNRULY - 7 assessed: 11/03/22 Source: Developed by Drs. Aniceto Swift, Mila Bishop, Jeovanny Treviño and colleagues, with an educational bandar from [employer]. Review of Systems Const Denies fatigue, Reports fever(s), Denies headache(s) and Denies weakness ENT Denies dizziness and Denies headache(s) Card Reports lightheadedness and Denies dyspnea Resp Denies cough, Denies dyspnea, Denies wheezing and Denies other ( shortness of breath) GI Reports nausea Musc Denies numbness and Denies tingling Neuro Denies dizziness, Denies headache(s), Denies numbness, Denies tingling, Denies paresthesias and Denies weakness Psych Denies anxiety and Denies depression Endo Denies fatigue Aller/Immun Denies wheezing Physical exam (Primary Care) Tobacco/Smoking Status: Tobacco use Status Tobacco use date assessed 12/13/23 04/10/24 13:40 Patient Tobacco Use Status Former Tobacco user 04/10/24 13:40 e-Cigarette/Vaping Use Never Used 04/10/24 13:40 Thrive Assessment: Date of Thrive Assessment Date Thrive assessed 11/03/22 04/10/24 13:40 Const General: no acute distress and well developed Nutritional Appearance: well nourished Orientation/consciousness: patient oriented x3 HENMT Head: Yes normocephalic and Yes atraumatic Eyes General: appearance normal, both eyes and all related structures Pupils: Equal, round and reactive pupils present EOM: EOMs intact bilaterally Resp Effort & Inspection: normal respiratory effort Auscultation: clear to auscultation bilaterally Cardio Rate: regular rate Rhythm: regular rhythm Heart sounds: S1 normal heart sound present, S2 normal heart sound present, no gallops, no murmurs and no rubs Neuro General: patient oriented x3 and gait normal Cranial nerves: Yes Equal, round and reactive pupils present Psych Affect: normal affect Assessment and Plan Assessment & Plan (1) Fever: Code(s): R50.9 - Fever, unspecified Plan: Fever?x6?days?and?patient?had?dental?work?recently. Today?no?fever.??Heart?rate?and?blood?pressure?are?normal Patient?has?had?dental?work?and?sutures?in?his?gums.??Is?currently?being?treated?for?an?infection?by?his?dentist?and?had?amoxicillin?switched?to?Augmentin. Dental?infection?is?most?likely?cause?for?his?feeling?feverish.??However,?can?not?rule?out?viral?infection Checking?COVID/flu/RSV?and?swab?will?be?sent?to?the?lab (2) History of elevated PSA: Code(s): Z87.898 - Personal history of other specified conditions Plan: PSA?had?been?elevated?previously?but more?recently?has?been within normal limits. He has a history of BPH with an obstructive uropathy but these seem to have resolved and he was told by his urologist he no longer needs to be seen regularly since his TURP. (3) Hypertension: Code(s): I10 - Essential (primary) hypertension Plan: Had?switched?lisinopril?to?losartan?due?to?concerns?regarding?a?cough.??He?continued?with?lisinopril?because?he?was?concerned?about?any?adverse?effects?of?losartan. Reassured?patient?that?he?is?likely?to?tolerate?losartan?well?but?can?switch?back?to?lisinopril?if?he?has?any?problems. (4) Fever: Code(s): R50.9 - Fever, unspecified Orders: Orders SARS-CoV2/FLU/RSV Today R50.9 - Fever, unspecified, Z20.822 - Contact with and (suspected) exposure to COVID-19 Coding Level of Care Code Est Pt Level 3 (06942) Diagnoses Fever R50.9 History of elevated PSA Z87.898 Hypertension I10
[2024-04-10 13:53] VITALS: BP 120/70; PULSE 77; RESP 18; TEMP 36.4; O2SAT 77; BMI 31.1
== END 2024-04-10 14:13 | disposition home or self-care (01) ==
LOC: HO.HMGFM 13:28
PROVIDERS: PCP Family Medicine; Visit Provider Family Medicine
DX: R50.9 Fever, unspecified (principal); Z87.898 Personal history of other specified conditions; I10 Essential (primary) hypertension
CPT/HCPCS: 99213

== ENCOUNTER 2024-04-10 15:01 | Outpatient (REF) | payer MEDICARE, SELFPAY ==
[2024-04-10 18:31] LABS: Influenza A PCR NEGATIVE (Negative); Influenza B PCR NEGATIVE (Negative); Resp Syncy Virus RNA Qual PCR NEGATIVE (Negative); SARS COV2 PCR INHOUSE NEGATIVE (Negative)
== END 2024-04-10 15:02 | disposition home or self-care (01) ==
LOC: HO.LAB 15:01
PROVIDERS: Visit Provider Family Medicine
DX: Z20.822 Contact with and (suspected) exposure to COVID-19 (principal); R05.9 Cough, unspecified
CPT/HCPCS: 0241U

== ENCOUNTER 2024-04-18 08:26 | Outpatient (AMB) | payer MEDICARE, SELFPAY ==
--- NOTE | 2024-04-18 08:31 | A.OFFVIS_ITS ---
Vital Signs 04/18/24 08:37 Height 5 ft 10 in Weight 192 lb BMI 27.5 BP 115/61 Blood Pressure Location Lt brachial Position Sitting Pulse 66 Intake Visit Reasons: pre colonoscopy Intake Note: Patient new consult for 3rd pre colonoscopy screening. Patient cc: loose stool, denies any other GI issues. 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 Accompanied by: Self / Same As Patient Allergies amoxicillin Allergy (Unknown, Verified 04/18/24 08:45) Unknown Medication List - Last Reconciled 04/18/24 by Oscar Alejandro MD bisacodyl (Dulcolax (bisacodyl)) 20 mg (4 x 5 mg) PO ONCE 1 day lisinopril 10 mg PO DAILY 90 days polyethylene glycol 3350 (Miralax) 17 grams PO DAILY 1 day tadalafil (Cialis) 10 mg PO DAILY PRN 30 days HPI HPI pre colonoscopy: Details: GI clinic visit for this 69 YM with hypertension and BPH referred by Dr Arias to schedule a colonoscopy for follow-up of colon polyps LABS IN [facility] : 02/2024 reviewed IMAGING STUDIES: No recent GI imaging studies ENDOSCOPIC STUDIES: None in [facility] TODAY'S VISIT: Patient denies symptoms of heartburn, dysphagia, nausea, vomiting, change in appetite. Lost a few lbs this summer after a dental procedure. Denies recent change in bowel habits, constipation, diarrhea, black stools or rectal bleeding. Patient denies major cardiac or pulmonary problems. Snores when he lays on his back and denies sleep apnea Denies ETOH abuse, quitted smoking 24 yrs ago Denies problems with anesthesia in the past. Denies being on chronic anticoagulation. 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 PAST ENDOSCOPIC EVALUATION: Per pt, he had a colonoscopy in 2019 in [place] and a few polyps were removed He states they had recommended a 5 year follow-up - pt will try to obtain a copy of his colonoscopy report. (Initial colon ? in 2008 was negative and pt was advised a 10 yr FU) [facility] Surgical History (Updated 04/18/24 @ 17:15 by Oscar Alejandro MD) History of colonoscopy with polypectomy History of prostate surgery Family History Mother No problems noted. Father No problems noted. Social History Housing: Other Housing Other:: Mobile home Alcohol intake: former Patient Tobacco Use Status: Former Tobacco user e-Cigarette/Vaping Use: Never Used Second Hand Smoke Exposure: No service: No Current occupational status: retired Current occupational exposures/hazards: No Cognitive needs: No Hearing needs: No Vision needs: No Review of Systems Const Denies fever(s), Denies headache(s) and Reports weight loss (recent wt loss of 10 lbs related to dental work) Eyes Denies eye discharge and Denies irritation ENT Reports Normal hearing present, Denies dysphagia, Denies dizziness and Denies headache(s) Card Denies chest pain, Denies leg edema and Denies dyspnea on exertion Resp Denies cough, Denies dyspnea on exertion and Denies wheezing GI Denies abdominal pain, Denies change in bowel habits, Denies dysphagia and Denies heartburn Denies dysuria Musc Denies back pain and Denies arthralgias Skin/Breast Denies pruritus, Denies rash and Denies jaundice Neuro Reports Normal hearing present, Denies Abnormal speech present, Denies dizziness, Denies headache(s) and Denies seizure-like activity Psych Denies anxiety, Denies depression and Denies panic attacks Endo Denies cold intolerance, Denies flushing and Denies heat intolerance Jamey/Lymph Denies easy bleeding and Denies easy bruising Aller/Immun Denies wheezing Physical Exam Vital Signs: Last Vital Signs Pulse 66 04/18/24 08:37 BP 115/61 04/18/24 08:37 BMI result Body Mass Index 27.5 Const General: healthy appearing and no acute distress Nutritional Appearance: overweight Orientation/consciousness: patient oriented x3 Limitations: no limitations HEENT Head: Yes normal to inspection Ears: hearing grossly normal bilaterally Eyes Sclerae: sclerae normal Pupils: Equal, round and reactive pupils present Neck Neck: Yes normal visual inspection Chest Chest palpation & inspection: normal inspection of the chest Resp Effort & Inspection: normal respiratory effort Auscultation: clear to auscultation bilaterally Cardio Palpation: normal PMI Rate: regular rate Rhythm: regular rhythm Heart sounds: S1 normal heart sound present, S2 normal heart sound present and no murmurs GI Palpation (GI): Soft to palpation, nontender and No hepatosplenomegaly present Auscultation: normal bowel sounds Rectal Exam - Male: Yes deferred Skin General skin exam: no rashes or lesions noted Neuro General: patient oriented x3, gait normal and moves all extremities Cranial nerves: Yes Equal, round and reactive pupils present and Yes Normal hearing present Speech: No Abnormal speech present Psych Appearance: grossly normal Mental Status: mental status grossly normal Assessment & Plan Assessment & Plan (1) History of colon polyps: Code(s): Z86.010 - Personal history of colonic polyps Category: Medical Plan 69 YM with hypertension and BPH referred by Dr Arias to schedule a colonoscopy for follow-up of colon polyps Patient denies known family history of colon polyps, colon cancer or other GI malignancies. Per pt, he had a colonoscopy in [address] [place] and a few polyps were removed and a 5 year follow-up colonoscopy was advised Pt will try to obtain a copy of his colonoscopy report. Patient was advised to schedule a colonoscopy for surveillance of colon polyps. Colonoscopy procedure and potential complications including bleeding, perforation and reaction to anesthetics were reviewed with the patient. Patient will be contacted by the surgical schedulers with an appointment for the procedure. Medications: New polyethylene glycol 3350 (Miralax) Mix Miralax with 64 oz(8 cups) of Crystal light. Take 2 tablets of Dulcolax qt 12 pm. Wait to have your 1st bowel movement, then begin drinking Miralax. Drink a glass of Miralax every 10-15 minutes until you are finished. You will drink at least another 4 cups of clear liquid of your choice over the next 2 hours. Please drink as many clear liquids as possible You may have clear liquids up to four hours before your procedure 17 grams PO DAILY 1 day 238 grams 0RF bisacodyl (Dulcolax (bisacodyl)) Take 4 tablets at 12 pm the day before colonoscopy appointment 20 mg (4 x 5 mg) PO ONCE 1 day 4 tabs 0RF colon prep Coding Level of Care Code New Pt Level 4 (98750) Diagnoses History of colon polyps Z86.010 Time Spent (min) 24
[2024-04-18 08:37] VITALS: BP 115/61; PULSE 66; BMI 27.5
== END 2024-04-18 11:35 | disposition home or self-care (01) ==
PROVIDERS: PCP Family Medicine; Visit Provider Internal Medicine Gastroenterology
DX: Z01.818 Encounter for other preprocedural examination (principal); Z12.11 Encounter for screening for malignant neoplasm of colon; Z86.010 Personal history of colon polyps
CPT/HCPCS: 99024

== ENCOUNTER → 2024-04-18 08:26 | Outpatient (BNVA) | payer MEDICARE, SELFPAY | PROVIDERS: PCP Family Medicine; Visit Provider Internal Medicine Gastroenterology | DX: Z01.818 Encounter for other preprocedural examination (principal); Z86.010 Personal history of colon polyps | CPT/HCPCS: 99212 ==

== ENCOUNTER 2024-07-17 09:29 | Outpatient (AMB) | payer MEDICARE, SELFPAY ==
--- NOTE | 2024-07-17 09:44 | A.OFFPC_ITS ---
Vital Signs 07/17/24 09:47 Height 5 ft 10 in Weight 213 lb 8 oz BMI 30.6 BP 128/67 Blood Pressure Location Rt brachial Position Sitting Respiration 16 Pulse 76 Pulse Source Pulse Oximeter Temp 98.2 F Temp Source Temporal Artery Scan Pulse Oximetry (%) 95 Oxygen Delivery Method Room Air Intake Visit Reasons: f/u hypertension Intake Note: f/u for HTN and cough Allergies amoxicillin Allergy (Unknown, Verified 07/17/24 09:45) Unknown Tobacco use date assessed: 12/13/23 Dental Screening Dental Screen Date: 12/13/23 HPI f/u hypertension HPI Details 69 y/o male presents to f/u hypertension . Blood pressure today 128/67, 76p. He is on lisinopril 10mg daily. Has complaints of a cough. Recent viral illness. HPI Comments History of Present Illness Details Documentation assistance for Jasen Arias MD, was provided by Jairon Singer, Behavioral Intervention Specialist on 07/17/2024 at 10:16 AM EST. I, Dr. Arias, have read, observed, and verified documentation. [facility] Surgical History (Updated 04/18/24 @ 17:15 by Oscar Alejandro MD) History of colonoscopy with polypectomy History of prostate surgery Family History Mother No problems noted. Father No problems noted. Social History Housing: Other Housing Other:: Mobile home Alcohol intake: former Patient Tobacco Use Status: Former Tobacco user e-Cigarette/Vaping Use: Never Used Second Hand Smoke Exposure: No service: No Current occupational status: retired Current occupational exposures/hazards: No Cognitive needs: No Hearing needs: No Vision needs: No Questionnaire Thrive Questionnaire Date Thrive assessed: 11/03/22 UNRULY-7 AMB Questionnaire UNRULY-7 Date UNRULY - 7 assessed: 11/03/22 Source: Developed by Drs. Aniceto Swift, Mila Bishop, Jeovanny Treviño and colleagues, with an educational bandar from [employer]. Review of Systems Const Denies chills, Denies fatigue, Denies fever(s), Denies headache(s) and Denies weakness ENT Denies dizziness and Denies headache(s) Card Denies dyspnea Resp Denies cough, Denies dyspnea, Denies wheezing and Denies other (shortness of breath) Musc Denies numbness and Denies tingling Neuro Denies dizziness, Denies headache(s), Denies numbness, Denies tingling and Denies weakness Psych Denies anxiety and Denies depression Endo Denies fatigue Aller/Immun Denies wheezing Physical exam (Primary Care) Vital Signs: Last Vital Signs Temp 98.2 F 07/17/24 09:47 Pulse 76 07/17/24 09:47 Resp 16 07/17/24 09:47 BP 128/67 07/17/24 09:47 Pulse Ox 95 07/17/24 09:47 Oxygen Delivery Method Room Air 07/17/24 09:47 BMI result Body Mass Index 30.6 Tobacco/Smoking Status: Tobacco use Status Tobacco use date assessed 12/13/23 07/17/24 09:48 Patient Tobacco Use Status Former Tobacco user 07/17/24 09:48 e-Cigarette/Vaping Use Never Used 07/17/24 09:48 Thrive Assessment: Date of Thrive Assessment Date Thrive assessed 11/03/22 07/17/24 09:48 Const General: well developed; No acute distress Nutritional Appearance: well nourished Orientation/consciousness: patient oriented x3 HENMT Head: Yes normocephalic and Yes atraumatic Eyes General: appearance normal, both eyes and all related structures Pupils: Equal, round and reactive pupils present EOM: EOMs intact bilaterally Resp Effort & Inspection: normal respiratory effort Neuro General: patient oriented x3 and gait normal Cranial nerves: Yes Equal, round and reactive pupils present Psych Affect: normal affect Coding Level of Care Code Est Pt Level 3 (63554) Diagnoses Hypertension I10 Cough R05.9 Assessment & Plan Assessment & Plan (1) Hypertension: Code(s): I10 - Essential (primary) hypertension Category: Medical Plan: Blood?pressure?is?controlled.??Goal?is?less?than?140/90 Patient?continues?lisinopril?and?does?not?have?a?dry?cough?though?he?notes?he?bojorquez s?a?productive Cough?recently. Had?tried?losartan?but?did?not?tolerate?this Continue?current?medication Encouraged?healthy?diet?and?avoiding?salt/sodium (2) Cough: Code(s): R05.9 - Cough, unspecified Category: Medical Plan: Patient?had?a?fairly?recent?viral?illness?which?has?resolved?but?he? still?has?a?lingering?cough?and?coarse?breath?sounds No?consolidations?heard?on?auscultation Will?give?him?a?short?script?for?prednisone Call?or?return?to?office?if?not?improving?or?worsening Medications: New prednisone 20 mg PO DAILY 5 days 5 tabs 0RF
[2024-07-17 09:47] VITALS: BP 128/67; PULSE 76; RESP 16; TEMP 36.8; O2SAT 95; BMI 30.6
== END 2024-07-17 10:26 | disposition home or self-care (01) ==
LOC: HO.HMCFM 09:29
PROVIDERS: PCP Family Medicine; Visit Provider Family Medicine
DX: I10 Essential (primary) hypertension (principal); R05.9 Cough, unspecified

== ENCOUNTER → 2024-07-17 09:29 | Outpatient (BNVA) | payer MEDICARE, SELFPAY | PROVIDERS: PCP Family Medicine; Visit Provider Family Medicine | DX: I10 Essential (primary) hypertension (principal); R05.9 Cough, unspecified | CPT/HCPCS: 99212 ==

== ENCOUNTER 2024-10-06 08:02 | Day surgery (SDC) | payer MEDICARE, SELFPAY ==
--- OUTSIDE RECORDS SUMMARY | 2024-09-02 11:02 | XMS_ITS ---
Author Name [facility] Organization Unknown History of Medication Use Medication Directions Dispensed Refills Start Date End Date Stat Multiple Vitamins-Minerals (MULTIVITAMIN WITH MINERALS) tablet Take 1 tablet by mouth daily. 06/24/2023 active lisinopril (PRINIVIL,ZeSTRIL) 10 MG tablet 06/24/2023 active Problems Problem Status Onset Date Problem Type Date of Resoluti on Source Increased infection risk active 2016-04-24 ProblemAct [facility] Chronic low back pain active 2016-04-06 ProblemAct [facility] Hyperlipidemia active 2016-04-[address] Acute pain of left knee active 2016-04-06 ProblemAct [facility] Fatigue active 2016-04-24 ProblemAct [facility] Muscle pain active 2016-04-24 ProblemAct [facility] BPH with elevated PSA active 2018-07-24 ProblemAct [facility] Essential (primary) hypertension active 2016-04-06 ProblemAct [facility] Immunizations Vaccine Date Source Lot Number Status Pneumococcal Polysaccharide 23-Valent 07/30/2018 CCT [id number] completed Influenza Inactivated/Split Preservative Free IM 07/30/2018 CCT [id number] completed
[2024-10-02 12:22] VITALS: BMI 27.5
--- OUTSIDE RECORDS SUMMARY | 2024-10-06 08:05 | XMS_ITS | Encounter Summary ---
Author Organization [facility] Address [address] [place] [address] Care Team Providers Care Charger Name Role Phone Unknown Primary Care Provider [phone] Jasen Arias MD Unavailable [phone] Encounter Details Date Type Department Care Team (Late st Contact Info) Description 10/12/2020 Telephone [facility] Urologic Surgery [place] [address] [facility] [address] [place] [phone] Pavan Hernandez MD [address] [facility] [address] [place] [address] Social History Tobacco Use Types Packs/Day Years Used Date Smoking Tobacco: Former Cigarettes 1 8 0 09/03/1989 - 09/03/1997 Smokeless Tobacco: Never Alcohol Use Standard Drinks/Week Comments No 0 (1 standard drink = 0.6 oz pur e alcohol) AUDIT-C Answer Date Recorded Frequency of Alcohol Consumption Never 05/15/2018 Average Number of Drinks Not on file 018 Frequency of Binge Drinking Not on file 05/04 PHQ-2 Answer Date Recorded PHQ-2 Total Score 2 06/30/2019 Sex and Gender Information Value Date Recorded Sex Assigned at Not on file Gender Identity Not on file Sexual Orientation Not on file COVID-19 Exposure Response Date Recorded In the last month, have you been in contact with someone who was confirmed or suspected to have Coronavirus / COVID-19? No / Unsure 10/12/2020 1:08 PM EST documented as of this encounter Miscellaneous Notes * Telephone Encounter - Pavan Hernandez MD - 10/12/2020 11:30 AM EST Oumar Rucker is coming to the office today 1:00 for a urethral catheter placement. Please placehim on my schedule documented in this encounter Plan of Treatment Not on file documented as of this encounter Visit Diagnoses Not on filedocumented in this encounter Care Teams Charger Relationship Specialty Start Date End Date Unknown Unknow Provider Address PCP - General 08/02/20 Jasen Arias MD [address] [place] [address] [place] [address] Physician General Medicine 01/12/21 documented as of this encounter
--- OUTSIDE RECORDS SUMMARY | 2024-10-06 08:05 | XMS_ITS | Encounter Summary ---
Author Organization [facility] Address [address] [place] [address] Care Team Providers Care Non Clinical Advisor Name Role Phone Marty Johnson MD Primary Care Provider Marty Johnson MD Unavailable [phone] Marty Johnson MD Unavailable [phone] Unknown Primary Care Provider [phone] Jasen Arias MD Unavailable [phone] Encounter Details Date Type Department Care Team (Late st Contact Info) Description 09/01/2019 Telephone [facility] Urologic Surgery [place] [address] [facility] [address] [place] [phone] Pavan Hernandez MD [address] [place] [address] [address] [place] [address] Social History Tobacco Use Types Packs/Day Years [...] on file Sexual Orientation Not on file documented as of this encounter Miscellaneous Notes * Telephone Encounter - Kenan Lemos - 09/01/2019 3:28 PM EST Pt calling in for 4k test results I did not see these in his chart Pt would like a call to discus once they come in cb # [phone] documented in this encounter Plan of Treatment Not on file documented as of this encounter Visit Diagnoses Not on filedocumented in this encounter Care Teams Non Clinical Advisor Relationship Specialty Start Date End Date Marty Johnson MD PCP - General Internal Medicine 03/14/18 08/01/20 Marty Johnson MD [address] [id number] PCP - [employer] Attributed 08/03/19 09/02/19 Marty Johnson MD [address] [id number] PCP - [employer] Attributed 10/04/19 12/02/19 Unknown Unknow Provider Address PCP - General 08/02/20 Jasen Arias MD [address] [place] [address] [place] [address] Physician General Medicine 01/12/21 documented as of this encounter
--- OUTSIDE RECORDS SUMMARY | 2024-10-06 08:06 | XMS_ITS | Encounter Summary ---
Author Organization [facility] [place] Address [address] [place] [address] Care Team Providers Care Principal Systems Engineer Name Role Phone Unknown Primary Care Provider [phone] Jasen Arias MD Unavailable [phone] Encounter Details Date Type Department Care Team (Late st Contact Info) Description 06/22/2021 Scanned Document [address] [place] [phone] Provider, Generic Social History Tobacco Use Types Packs/Day Years [...] on file documented as of this encounter Plan of Treatment Not on file documented as of this encounter Visit Diagnoses Not on filedocumented in this encounter Care Teams Principal Systems Engineer Relationship Specialty Start Date End Date Unknown Unknow Provider Address PCP - General 08/02/20 Jasen Arias MD [address] [place] [address] [place] [address] Physician General Medicine 01/12/21 documented as of this encounter
--- OUTSIDE RECORDS SUMMARY | 2024-10-06 08:06 | XMS_ITS | Encounter Summary ---
Author Organization [facility] Address [address] [place] [address] Care Team Providers Care Cyber Systems Operations Specialist Name Role Phone Marty Johnson MD Primary Care Provider [phone] Unknown Primary Care Provider [phone] Jasen Arias MD Unavailable [phone] Reason for Visit * Reason Comments Other No-show appt Encounter Details Date Type Department Care Team (Late st Contact Info) Description 02/16/2020 Telephone [facility] Urologic Surgery [address] [place] [address] Pavan Hernandez MD [address] [facility] [address] [place] [address] Other (No-show appt) Social History Tobacco Use Types Packs/Day Years [...] or suspected to have Coronavirus / COVID-19? Unable to assess 02/16/2020 1:40 PM EDT documented as of this encounter Plan of Treatment Not on file documented as of this encounter Visit Diagnoses Not on filedocumented in this encounter Care Teams Cyber Systems Operations Specialist Relationship Specialty Start Date End Date Marty Johnson MD PCP - General Internal Medicine 03/14/18 08/01/20 Unknown Unknow Provider Address PCP - General 08/02/20 Jasen Arias MD [address] [place] [address] [place] [address] Physician General Medicine 01/12/21 documented as of this encounter
--- OUTSIDE RECORDS SUMMARY | 2024-10-06 08:06 | XMS_ITS | Encounter Summary ---
Author Organization [facility] Address [address] [place] [address] Care Team Providers Care Biscuit Maker Name Role Phone Unknown Primary Care Provider [phone] Jasen Arias MD Unavailable [phone] Encounter Details Date Type Department Care Team (Late st Contact Info) Description 02/24/2021 Scanned Document [facility] Urologic Surgery [address] [place] [phone] Pavan Hernandez MD [address] [place] [address] [address] Social History Tobacco Use Types Packs/Day Years [...] on file documented as of this encounter Procedures Procedure Name Priority Date/Time Associated Diagnosis Comments PATHOLOGY REPORT 02/24/2021 5:34 PM EDT documented in this encounter Results * PATHOLOGY REPORT (02/24/2021 5:34 PM EDT) Pavan Hernandez MD PATHOLOGY/CYTOLOGY ORDERABLES documented in this encounter Visit Diagnoses Not on filedocumented in this encounter Care Teams Biscuit Maker Relationship Specialty Start Date End Date Unknown Unknow Provider Address PCP - General 08/02/20 Jasen Arias MD [address] [place] [address] [place] [address] Physician General Medicine 01/12/21 documented as of this encounter
--- OUTSIDE RECORDS SUMMARY | 2024-10-06 08:06 | XMS_ITS | Encounter Summary ---
Author Organization [facility] Address [address] [place] [address] Care Team Providers Care Vac Press Operator Name Role Phone Marty Johnson MD Primary Care Provider [phone] Marty Johnson MD Unavailable [phone] Unknown Primary Care Provider [phone] Jasen Arias MD Unavailable Encounter Details Date Type Department Care Team (Late st Contact Info) Description 11/06/2019 Telephone [facility] Urologic Surgery [address] [place] [phone] Pavan Hernandez MD [address] [place] [address] Social History Tobacco Use Types Packs/Day Years [...] encounter Miscellaneous Notes * Telephone Encounter - Aldair Willett MA - 11/06/2019 9:33 AM EST [employer] ([employer]) will not be in office the day of the bx (11/25/2019) and pt wanted everything done prior to December due to him starting a new job. He will call back to reschedule all his appts. documented in this encounter Plan of Treatment Not on file documented as of this encounter Visit Diagnoses Not on filedocumented in this encounter Care Teams Vac Press Operator Relationship Specialty Start Date End Date Marty Johnson MD PCP - General Internal Medicine 03/14/18 08/01/20 Marty Johnson MD [address] [place] [address] PCP - [employer] Attributed 10/04/19 12/02/19 Unknown Unknow Provider Address PCP - General 08/02/20 Jasen Arias MD [address] [place] [address] [place] [address] Physician General Medicine 01/12/21 documented as of this encounter
--- OUTSIDE RECORDS SUMMARY | 2024-10-06 08:06 | XMS_ITS | Clinical Summary ---
Author Organization [facility] Address [address] [place] [address] Care Team Providers Care Process Technician Name Role Phone Unknown Primary Care Provider [phone] Jasen Arias MD Unavailable [phone] Allergies No known active allergies Medications Medication Sig Dispensed Refills Start Date End Date Status Multiple Vitamins-Minerals (MULTIVITAMIN WITH MINERALS) tablet Take 1 tablet by mouth daily. Active lisinopril (PRINIVIL,ZeSTRIL) 10 MG tablet 10/10/2020 Active Active Problems Problem Noted Date Diagnosed Date BPH with elevated PSA 07/24/2018 Fatigue 04/24/2016 Increased infection risk 04/24/2016 Muscle pain 04/24/2016 Acute pain of left knee 04/06/2016 Overview (04/24/2018): Overview: IMO 2016 R2.1 update change Chronic low back pain 04/06/2016 Essential (primary) hypertension 04/06/2016 Overview (04/24/2018): Overview: watch/keep log Hyperlipidemia 04/06/2016 Immunizations Name Administration Dates Next Due Influenza Inactivated/Split Preservative Free IM 07/30/2018 Pneumococcal Polysaccharide 23-Valent 07/30/2018 Family History Relation Name Status Comments Father Mother Social History Tobacco Use Types Packs/Day Years Used Date Smoking Tobacco: Former Cigarettes 1 8 0 09/03/1989 - 09/03/1997 Smokeless Tobacco: Never Alcohol Use Standard Drinks/Week Comments No 0 (1 standard drink = 0.6 oz pur e alcohol) AUDIT-C Answer Date Recorded Frequency of Alcohol Consumption Never 05/15/2018 Average Number of Drinks Not on file Frequency of Binge Drinking Not on file 05/04 PHQ-2 Answer Date Recorded PHQ-2 Total Score 2 06/30/2019 Sex and Gender Information Value Date Recorded Sex Assigned at Not on file Gender Identity Not on file Sexual Orientation Not on file Last Filed Vital Signs Vital Sign Reading Time Taken Comments Blood Pressure 145/77 07/10/2019 2:18 PM EST Pulse 60 07/10/2019 2:18 PM EST Temperature 37 ??C (98.6 ??F) 03/22/2021 10:32 AM EDT Respiratory Rate 18 06/30/2019 2:55 PM EDT Oxygen Saturation 96% 07/10/2019 2:18 PM EST Inhaled Oxygen Concentration - - Weight 97.5 kg (215 lb) 09/27/2021 2:54 PM EST Height 177.8 cm (5' 10 ) 09/27/2021 2:54 PM EST Body Mass Index 30.85 09/27/2021 2:54 PM EST Plan of Treatment Health Maintenance Due Date Last Done Comments DTaP/Tdap/Td Vaccines (1 - Tdap) 02/01/1975 Colonoscopy 02/01/2006 Zoster (Shingles) Vaccine (1 of 2) 02/01/2006 Pneumococcal Vaccines 50+ (2 of 2 - PCV) 07/30/2019 07/30/2018 Influenza Vaccine 04/03/2024 07/30/2018 COVID-19 Vaccine (3 - 2023-2 5 season) 2024 12/22/2020, 11/30/2020 RSV Vaccine 60 years and older and Patients (1 - 1-dose 75+ series) 02/01/2031 Hepatitis C Virus Screening Completed 06/03/2018 Hepatitis B Vaccines Aged Out No long er eligible based on patient's age to complete this topic Procedures Procedure Name Priority Date/Time Associated Diagnosis Comments HEPATITIS C VIRUS (HCV) ANTIBODY Routine 06/03/2018 12:20 PM EDT Need for hepatitis C screening test from Last 3 Months or Most Recently Relevant to Health Maintenance Results * Hepatitis C Virus (HCV) Antibody (06/03/2018 12:20 PM EDT) Hepatitis C Antibody NON-REACTI VE NON-REACT [facility] Hepatitis C Antibody (s/co) 0.02 <1.00 [facility] Blood specimen (specimen) 06/03/2018 12:20 PM EDT 06/03/2018 12:21 PM EDT Narrative [facility] - 06/04/2018 4:24 AM EDT FASTING:NO FASTING: NO Resulting Agency Comment Performing Organization Information: ?Site ID: [id number] ?Name: [facility] ?Address: [address] [place] [address], [place] [address] ?Director: Evelyn Palm MD Marty Johnson MD LAB BLOOD ORDERABLES [facility] [address], [address] [place], [place] [id number] from Last 3 Months or Most Recently Relevant to Health Maintenance Care Teams Process Technician Relationship Specialty Start Date End Date Unknown Unknow Provider Address PCP - General 08/02/20 Jasen Arias MD [address] [place] [address] [place] [address] Physician General Medicine 01/12/21
--- OUTSIDE RECORDS SUMMARY | 2024-10-06 08:06 | XMS_ITS | Encounter Summary ---
Author Organization [facility] Address [address] [place] [address] Care Team Providers Care Jackspooler Name Role Phone Unknown Primary Care Provider Jasen Arias MD Unavailable [phone] Encounter Details Date Type Department Care Team (Late st Contact Info) Description 02/23/2021 Scanned Document [facility] Urologic Surgery [address] [place] [address] [place] [phone] Pavan Hernandez MD [address] [address] Social History Tobacco Use Types Packs/Day Years [...] on filedocumented in this encounter Care Teams Jackspooler Relationship Specialty Start Date End Date Unknown Unknow Provider Address PCP - General 08/02/20 Jasen Arias MD [address] [place] [address] [place] [address] Physician General Medicine 01/12/21 documented as of this encounter
--- OUTSIDE RECORDS SUMMARY | 2024-10-06 08:06 | XMS_ITS | Encounter Summary ---
Author Organization [facility] Address [address] [place] [address] Care Team Providers Care Dinkey Skinner Name Role Phone Marty Johnson MD Primary Care Provider [phone] Marty Johnson MD Unavailable [phone] Marty Johnson MD Unavailable [phone] Unknown Primary Care Provider [phone] Jasen Arias MD Unavailable [phone] Reason for Visit * Reason Comments Medication Refill Encounter Details Date Type Department Care Team (Late st Contact Info) Description 06/18/[address] [phone] Marty Johnson MD [address] [place] [address] Elevated PSA Social History Tobacco Use Types Packs/Day Years Used Date Smoking Tobacco: Former Smokeless Tobacco: Never Alcohol Use Standard Drinks/Week Comments No 0 (1 standard drink = 0.6 oz pur e alcohol) AUDIT-C Answer Date Recorded Frequency of Alcohol Consumption Never 05/15/2018 Average Number of Drinks Not on file 018 Frequency of Binge Drinking Not on file 05/04 Sex and Gender Information Value Date Recorded Sex Assigned at Not on file Gender Identity Not on file Sexual Orientation Not on file documented as of this encounter Miscellaneous Notes * Telephone Encounter - Annette Carmona LPN - 06/18/2018 3:35 PM EDT Therapy completed through urology. documented in this encounter Plan of Treatment Not on file documented as of this encounter Visit Diagnoses Diagnosis Elevated PSA Elevated prostate specific antigen (PSA) documented in this encounter Care Teams Dinkey Skinner Relationship Specialty Start Date End Date Marty Johnson MD PCP - General Internal Medicine 03/14/18 08/01/20 Marty Johnson MD [address] [place] [address] PCP - [employer] Attributed 08/03/19 09/02/19 Marty Johnson MD [address] [place] [address] PCP - [employer] Attributed 10/04/19 12/02/19 Unknown Unknow Provider Address PCP - General 08/02/20 Jasen Arias MD [address] [place] [address] [place] [address] Physician General Medicine 01/12/21 documented as of this encounter
--- OUTSIDE RECORDS SUMMARY | 2024-10-06 08:06 | XMS_ITS | Clinical Summary ---
Author Organization [facility] Address [address] [place] [address] Care Team Providers Care Ui Software Developer Name Role Phone Unavailable Primary Care Provider Unavailabl e Medications Medication Sig Dispensed Refills Start Date End Date Status lisinopril (PRINIVIL,ZESTRIL) tablet 10 mg Take 1 tablet (10 mg total) by mouth daily. 0 02/14/2023 Active vitamin B-12 (CYANOCOBALAMIN) 100 MCG tablet Take 0.5 tablets (50 mcg total) by mouth daily. 0 Active Social History Tobacco Use Types Packs/Day Years Used Date Smoking Tobacco: Never Assessed Sex and Gender Information Value Date Recorded Sex Assigned at Not on file Gender Identity Not on file Sexual Orientation Not on file Job Start Date Occupation Industry Not on file Not on file Not on file Last Filed Vital Signs Vital Sign Reading Time Taken Comments Blood Pressure 135/82 06/17/2023 2:10 PM EDT Pulse 73 06/17/2023 2:10 PM EDT Temperature 37 ??C (98.6 ??F) 06/17/2023 2:10 PM EDT Respiratory Rate - - Oxygen Saturation 98% 06/17/2023 2:10 PM EDT Inhaled Oxygen Concentration - - Weight 93 kg (205 lb) 06/17/2023 2:10 PM EDT Height 175.3 cm (5' 9 ) 06/17/2023 2:10 PM EDT Body Mass Index 30.27 06/17/2023 2:10 PM EDT Plan of Treatment Health Maintenance Due Date Last Done Comments Hepatitis C Screening 1955 COVID-19 Vaccine (#1) 1955 BMI Counseling 02/01/1974 DTap / Tdap / Td (1 - Tdap) 02/01/1975 Colon Cancer Screening (Colonoscopy) 02/01/2001 Shingrix-Zoster Vaccine (1 of 2) 02/01/2006 Pneumococcal Vaccine (2 of 2 - PCV) 02/01/2021 07/30/2018 Depression Screening 03/17/2024 03/17/2023 Fall Risk Assessment 03/17/2024 03/17/2023 Influenza Vaccine (#1) 2024 07/30/2018 Preventative Health Evaluation 06/17/2024 06/17/2023 RSV Adult > 60+ Yrs or Pregn ant (1 - 1-dose 75+ series) 02/01/2031 Hepatitis B Vaccines Aged Out No long er eligible based on patient's age to complete this topic RSV Ped < 20 months Aged Out No longe r eligible based on patient's age to complete this topic Oumar uRcker Personal/Family Self 1955 [address] [address] Oumar Rucker Personal/Family Self 1955 [address] [place] [address]
--- OUTSIDE RECORDS SUMMARY | 2024-10-06 08:06 | XMS_ITS | Encounter Summary ---
Author Organization [facility] Address [address] [place] [address] Care Team Providers Care Food Service Attendant Name Role Phone Unknown Primary Care Provider [phone] Jasen Arias MD Unavailable [phone] Reason for Visit * Reason Comments Other returning call Encounter Details Date Type Department Care Team (Late st Contact Info) Description 09/20/2020 Telephone [facility] Urologic Surgery [address] [place] [phone] Pavan Hernandez MD [address] [place] [address] [address] Other (returning call) Social History Tobacco Use Types Packs/Day Years [...] have Coronavirus / COVID-19? No / Unsure 09/21/2020 11:47 AM EST documented as of this encounter Miscellaneous Notes * Telephone Encounter - Marisa Estevez LPN - 09/21/2020 9:36 AM EST Spoke with the patient, he reports that he is unsure if his insurance company will cover a VV appointment. Therefore, he has cancelled his VV appointment for today and scheduled an in office appointment. Pt is currently asymptomatic and denies having any known exposure to anyone confirmed or suspected of having covid 19. Please advise if he may present for his appt later this morning as scheduled. * Telephone Encounter - Arnaud Maza - 09/21/2020 9:27 AM EST Patient advised to arrive 15 min early wearing a mask. Patient coming alone. COVID-19 Pre-Screening: (YES/NO) 1. Do you have any of the following: NO - Fever >=100oF - New Cough - New Shortness of Breath or Difficulty Breathing - Chills - Repeated shaking with chills - Muscle pain - Sore throat - New loss of taste or smell - New onset of congestion/runny nose - New GI symptoms of nausea, vomiting, or diarrhea 2. Are you immunocompromised? NO - If yes: Have you been diagnosed with COVID-19 in the last 21 days? - If no: Have you been diagnosed with COVID-19 in the last 10 days? NO 3. Have you been instructed to quarantine because of COVID-19 illness or exposure? NO 4. Have you traveled outside of the state in the past 10 days? YES [place] - If yes: Have you traveled to a state other than [place], [place], [place] or [place]? [place] based practices: Travel to one of the states below offer virtual visit or conversation with clinical staff member. https://portal.[place].gov/Coronavirus/Ixmvv-13-Jpeuatqjr-Base/Gimnjf-Dg-dh-[facility] based practices Please refer to the [place] travel advisory list. Travel to one of the states listed offer virtual visit or conversation with clinical staff member. https://docs.Balanced.com/spreadsheets/d/e/[email or web address]/pubhtml?gid=0&single=true * Telephone Encounter - Sarah Mcdonald MA - 09/20/2020 8:58 AM EST I left a VM for Oumar to verify that his appt for tomorrow 09/21/2020 is a VV documented in this encounter Plan of Treatment Not on file documented as of this encounter Visit Diagnoses Not on filedocumented in this encounter Care Teams Food Service Attendant Relationship Specialty Start Date End Date Unknown Unknow Provider Address PCP - General 08/02/20 Jasen Arias MD [address] [place] [address] [place] [address] Physician General Medicine 01/12/21 documented as of this encounter
--- OUTSIDE RECORDS SUMMARY | 2024-10-06 08:06 | XMS_ITS | Encounter Summary ---
Author Organization [facility] Address [address] [place] [address] Care Team Providers Care Group Segment Consultant Name Role Phone Unknown Primary Care Provider [phone] Jasen Arias MD Unavailable [phone] Reason for Visit * Reason Comments Advice Only no covid test needed if patient has had his covid vaccine Encounter Details Date Type Department Care Team (Late st Contact Info) Description 02/16/2021 Telephone [facility] Urologic Surgery [address] [place] [address] Pavan Hernandez MD [address] [place] [address] [address] [place] [address] Advice Only (no covid test needed if patient has had his covid vaccine) Social History Tobacco Use Types Packs/Day Years [...] encounter Miscellaneous Notes * Telephone Encounter - Tammi Ramires - 02/18/2021 2:23 PM EDT Pt aware to bring his Covid vaccine card to [facility] when he goes documented in this encounter Plan of Treatment Not on file documented as of this encounter Visit Diagnoses Not on filedocumented in this encounter Care Teams Group Segment Consultant Relationship Specialty Start Date End Date Unknown Unknow Provider Address PCP - General 08/02/20 Jasen Arias MD [address] [place] [address] [place] [address] Physician General Medicine 01/12/21 documented as of this encounter
--- OUTSIDE RECORDS SUMMARY | 2024-10-06 08:06 | XMS_ITS | Clinical Summary ---
Author Organization [place] [address] [place] [address] [place] [address] Care Team Providers Care Engine Mechanic Name Role Phone Unavailable Primary Care Provider Unavailabl e Allergies No known active allergies Medications multivitamin with minerals tablet Take 1 tablet by mouth daily. 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 Sex and Gender Information Value Date Recorded Sex Assigned at Not on file Legal Sex Male 9:11 PM EDT Gender Identity Not on file Sexual Orientation Not on file Last Filed Vital Signs Vital Sign Reading Time Taken Comments Blood Pressure 140/90 04/06/2016 8:07 AM EDT Pulse 67 04/06/2016 8:07 AM EDT Temperature - - Respiratory Rate 18 04/06/2016 8:07 AM EDT Oxygen Saturation 98% 04/06/2016 8:07 AM EDT Inhaled Oxygen Concentration - - Weight 106.6 kg (235 lb) 04/06/2016 8:07 AM EDT Height 177.8 cm (5' 10 ) 04/06/2016 8:07 AM EDT Body Mass Index 33.72 04/06/2016 8:07 AM EDT Plan of Treatment Health Maintenance Due Date Last Done Comments HIV screening 02/01/1969 Hepatitis C screening 02/01/1974 Tetanus adult (Td q 10,TDAP once) 1976 Colon cancer screening, Colonoscopy 02/01/2001 Shingles vaccine (Shingrix) (1 of 2 - Shingrix (RZV) 2 Dose Standard Series) 02/01/2006 Diabetes screening 05/23/2019 05/23/2016 Pneumo Vaccine 65+ (1 of 1 - PCV) 02/01/2021 Lipid disorder screening 05/23/2021 016, 05/23/2016 Influenza vaccine 04/03/2024 Covid-19 vaccine series ( - 2023- season) 2024 RSV Discussion (1 - 1-dose 7 5+ series) 02/01/2031 Meningococcal Vaccine Aged Out No herminio tesfaye eligible based on patient's age to complete this topic Procedures Procedure Name Priority Date/Time Associated Diagnosis Comments COMPREHENSIVE METABOLIC PANEL Routine 05/23/2016 9:47 AM EDT CHOLESTEROL, TOTAL Routine 05/23/2016 9: 47 AM EDT from Last 3 Months or Most Recently Relevant to Health Maintenance Results * Cholesterol, total (05/23/2016 9:47 AM EDT) Cholesterol, Total 163 125 - 200 mg/dL [facility] 05/23/2016 9:47 AM EDT 05/23/2016 9:48 AM EDT Narrative [facility] - 05/24/2016 12:16 AM EDT FASTING:YES Resulting Agency Comment Performing Organization Information: ?Site ID: [id number] ?Name: Marco Vasco-Marco Vasco ?Address: [address] [place] [address], [place] [address] ?Director: Evelyn Palm MD Wil Harding MD LAB BLOOD ORDERABLES Final Re sult [facility] [address] [place] [address], [facility] * Comprehensive metabolic panel (05/23/2016 9:47 AM EDT) Glucose 85 65 - 99 mg/dL [facility] Comment: ? Fasting reference interval BUN 10 7 - 25 mg/dL [facility] Creatinine 0.92 0.70 - 1.25 mg/dL [facility] Comment: For patients >49 years of age, the reference limit for Creatinine is approximately 13% higher for people identified as -Swiss. eGFR (NON -Swiss) 90 > OR = 60 mL/min/1 .73m2 [facility] eGFR (Afr Amer) 104 > OR = 60 mL/min/1 .73m2 [facility] BUN/Creatinine Ratio NOT APPLICABLE 6 - 22 (calc) [facility] Sodium 139 135 - 146 mmol/L [facility] Potassium 4.8 3.5 - 5.3 mmol/L [facility] Chloride 103 98 - 110 mmol/L [facility] CO2 22 20 - 31 mmol/L [facility] Calcium 10.3 8.6 - 10.3 mg/dL [facility] Protein, Total 7.2 6.1 - 8.1 g/dL [facility] Albumin 4.4 3.6 - 5.1 g/dL [facility] Globulin 2.8 1.9 - 3.7 g/dL (calc) [facility] Albumin/Globulin Ratio 1.6 1.0 - 2.5 (calc) [facility] Bilirubin, Total 0.6 0.2 - 1.2 mg/dL [facility] Alkaline Phosphatase 62 40 - 115 U/L [facility] AST 21 10 - 35 U/L [facility] ALT 30 9 - 46 U/L [facility] 05/23/2016 9:47 AM EDT 05/23/2016 9:48 AM EDT Narrative [facility] - 05/24/2016 12:16 AM EDT FASTING:YES Resulting Agency Comment Performing Organization Information: ?Site ID: [id number] ?Name: Marco Vasco-Marco Vasco ?Address: [address] [place] [address], [place] [address] ?Director: Evelyn Palm MD us Wil Harding MD LAB BLOOD ORDERABLES Final Re sult [facility] [address] [place] [address] from Last 3 Months or Most Recently Relevant to Health Maintenance Insurance DIVERSIFIED ADMIN
--- OUTSIDE RECORDS SUMMARY | 2024-10-06 08:06 | XMS_ITS | Encounter Summary ---
Author Organization [facility] Address [address] [place] [address] Care Team Providers Care Shank Rander Name Role Phone Marty Johnson MD Primary Care Provider [phone] Unknown Primary Care Provider [phone] Jasen Arias MD Unavailable [phone] Reason for Visit * Reason Comments Medication Refill Encounter Details Date Type Department Care Team (Late st Contact Info) Description 06/15/2020 Refill [facility] Urologic Surgery [place] [address] [place] [address] Pavan Ramirez MD [address] [place] [address] BPH with elevated PSA Social History Tobacco Use Types Packs/Day [...] as of this encounter Visit Diagnoses Diagnosis BPH with elevated PSA documented in this encounter Care Teams Shank Rander Relationship Specialty Start Date End Date Marty Johnson MD PCP - General Internal Medicine 03/14/18 08/01/20 Unknown Unknow Provider Address PCP - General 08/02/20 Jasen Arias MD [address] [place] [address] [place] [address] Physician General Medicine 01/12/21 documented as of this encounter
--- OUTSIDE RECORDS SUMMARY | 2024-10-06 08:06 | XMS_ITS | Encounter Summary ---
Author Organization [facility] Address [address] [place] [address] Care Team Providers Care Derrick Car Operator Name Role Phone Unknown Primary Care Provider [phone] Jasen Arias MD Unavailable [phone] Encounter Details Date Type Department Care Team (Late st Contact Info) Description 02/08/2021 Scanned Document [facility] Urologic Surgery [address] [place] [address] Provider, MD Zohra [address] [place] [address] Social History Tobacco Use Types Packs/Day Years [...] on filedocumented in this encounter Care Teams Derrick Car Operator Relationship Specialty Start Date End Date Unknown Unknow Provider Address PCP - General 08/02/20 Jasen Arias MD [address] [place] [address] [place] [address] Physician General Medicine 01/12/21 documented as of this encounter
--- OUTSIDE RECORDS SUMMARY | 2024-10-06 08:06 | XMS_ITS | Encounter Summary ---
Author Organization [facility] Address [address] [place] [address] Care Team Providers Care Plastic Design Applier Name Role Phone Unknown Primary Care Provider Jasen Arias MD Unavailable [phone] Encounter Details Date Type Department Care Team (Late st Contact Info) Description 02/23/2021 Scanned Document [facility] Urologic Surgery [address] [place] [address] [place] [phone] Pavan Hernandez MD [address] [address] [address] Social History Tobacco Use Types Packs/Day Years [...] on filedocumented in this encounter Care Teams Plastic Design Applier Relationship Specialty Start Date End Date Unknown Unknow Provider Address PCP - General 08/02/20 Jasen Arias MD [address] [place] [address] [place] [address] Physician General Medicine 01/12/21 documented as of this encounter
--- OUTSIDE RECORDS SUMMARY | 2024-10-06 08:06 | XMS_ITS | Data Portability ---
Author Organization [facility] [address] Address [address] [place] [address] Assessment No assessment recorded. Plan of Treatment Reminders Order Date Submit Date Provider Last Modified By Organization Details Last Modified Time Details Appointments None record ed. Lab None record ed. Referral None record ed. Procedures None record ed. Surgeries None record ed. Imaging None record ed. Medication Orders None record ed. Patient TargetsNo targets recorded. Patient InstructionsNo instructions recorded. Reason for Referral None Reported. Procedures Surgical History Date Name Laterality Status Provider Name and Address Organization Details Recorded Time OC-UDS Rapid eCup Template completed [facility] 09/19/2024 15:58:53 Imaging Results None recorded. Procedure Notes None recorded. Medical Equipment None Reported. Vitals None Recorded Social History None recorded. Functional Status None recorded. Mental Status None recorded. Family History Nothing Reported. Medical History No medical history recorded. Past Encounters Encounter ID Performer Location Encounter Start Date Encounter Closed Date Diagnosis/Indication Diagnosis SNOMED-CT Code Diagnosis ICD10 Code Diagnosis Note [id number] [address] [address] 03/19/2017 18:01:38 03/19/2017 18:19:24 [id number] [facility] [place] [address] 11/09/2016 16:27:52 11/09/2016 16:50:01 [id number] [address] [address] 07/23/2021 17:44:37 07/23/2021 19:04:34 [id number] [address] [address] 03/25/2020 19:04:52 03/25/2020 19:30:17 [id number] [facility]AT[facility] REYES [address] [address] 09/19/2024 15:46:19 09/19/2024 16:02:33 History and physical examination, occupation 578024260 Z02.1 Health Concerns Section Related Observation LastModified by Organization Detai ls LastModified Time None Recorded Concern Status LastModified by Organization Details LastModified Time None Recorded Advance Directives Directive None Recorded Payers Encounter Date Sequence Insurance Name Policy Number Policy Wilks Covered Member ID Wilks Member ID Guarantor Name 07/23/2021 1 [employer] (MEDICARE REPLACEMENT PPO) [id number] Oumar Rucker [id number] Oumra Rucker 09/19/2024 OC-ESCREEN [employer] [id number] Oumar Rucker
--- OUTSIDE RECORDS SUMMARY | 2024-10-06 08:06 | XMS_ITS | Encounter Summary ---
Author Organization [facility] Address [address] [place] [address] Care Team Providers Care Pompom Maker Name Role Phone Marty Johnson MD Primary Care Provider [phone] Marty Johnson MD Unavailable [phone] Unknown Primary Care Provider [phone] Jasen Arias MD Unavailable Encounter Details Date Type Department Care Team (Late st Contact Info) Description 10/08/2019 Scanned Document [facility] Urologic Surgery [place] [address] [facility] [address] [place] [phone] Provider, External, [address] [place] [address] Social History Tobacco Use Types Packs/Day Years [...] on filedocumented in this encounter Care Teams Pompom Maker Relationship Specialty Start Date End Date Marty Johnson MD PCP - General Internal Medicine 03/14/18 08/01/20 Marty Johnson MD [address] [place] [address] PCP - [employer] Attributed 10/04/19 12/02/19 Unknown Unknow Provider Address PCP - General 08/02/20 Jasen Arias MD [address] [place] [address] [place] [address] Physician General Medicine 01/12/21 documented as of this encounter
--- OUTSIDE RECORDS SUMMARY | 2024-10-06 08:06 | XMS_ITS | Encounter Summary ---
Author Organization [facility] Address [address] [place] [address] Care Team Providers Care Sewing Machine Bobbin Winder Name Role Phone Unknown Primary Care Provider [phone] Jasen Arias MD Unavailable [phone] Reason for Visit * Reason Comments Advice Only Encounter Details Date Type Department Care Team (Late st Contact Info) Description 11/08/2020 Telephone [facility] Urologic Surgery [place] [address] [facility] [address] [place] [address] Pavan Hernandez MD [address] [place] [address] [address] [place] [address] Advice Only Social History Tobacco Use Types Packs/Day Years [...] have Coronavirus / COVID-19? No / Unsure 11/05/2020 10:49 AM EST documented as of this encounter Miscellaneous Notes * Telephone Encounter - Dayan Gaston MA - 11/15/2020 11:30 AM EDT Pt is all set, pt wanted to moved up surgery for april to February. Pt was advised to make an appt with primary care for Per-op physical. documented in this encounter Plan of Treatment Not on file documented as of this encounter Visit Diagnoses Not on filedocumented in this encounter Care Teams Sewing Machine Bobbin Winder Relationship Specialty Start Date End Date Unknown Unknow Provider Address PCP - General 08/02/20 Jasen Arias MD [address] [place] [address] [place] [address] Physician General Medicine 01/12/21 documented as of this encounter
--- OUTSIDE RECORDS SUMMARY | 2024-10-06 08:06 | XMS_ITS | Encounter Summary ---
Author Organization [facility] Address [address] [place] [address] Care Team Providers Care Staple Fiber Washer Name Role Phone Unknown Primary Care Provider [phone] Jasen Arias MD Unavailable [phone] Reason for Visit * Reason Comments Medical Complaint Encounter Details Date Type Department Care Team (Late st Contact Info) Description 10/19/2020 Telephone [facility] Urologic Surgery [place] [address] [facility] [address] [place] [address] Pavan Hernandez MD [address] [place] [address] [address] [place] [address] Medical Complaint Social History Tobacco Use Types Packs/Day Years [...] encounter Miscellaneous Notes * Telephone Encounter - Malcolm Gomez LPN - 10/19/2020 12:48 PM EST iPhone call received, took call. Spoke with pt/Oumar, he stated that he has voided very little since having his catheter removed this morning for his TOV. He stated that he has not taken in much fluid. He denied having any pain/discomfort. Advised pt that he may come back to the office sooner than his 1400 appointment. Pt statedthat he wants to wait, drink, and try to void again prior to returning. Advised pt to return to theoffice sooner if he has any discomfort or pain. Pt expressed an understanding and stated that he will call back first if he is coming back sooner than his scheduled time. documented in this encounter Plan of Treatment Not on file documented as of this encounter Visit Diagnoses Not on filedocumented in this encounter Care Teams Staple Fiber Washer Relationship Specialty Start Date End Date Unknown Unknow Provider Address PCP - General 08/02/20 Jasen Arias MD [address] [place] [address] [place] [address] Physician General Medicine 01/12/21 documented as of this encounter
--- OUTSIDE RECORDS SUMMARY | 2024-10-06 08:06 | XMS_ITS | Continuity of Care Document ---
Author Organization [facility] Address [address] [place] [address] Assessment No assessment recorded. Plan of Treatment [...] Time OC-UDS Rapid eCup Template completed [facility] 09/19/2024 15:58:53 Imaging Results None recorded. Procedure Notes None recorded. Medical Equipment None Reported. Vitals None Recorded Social History None recorded. Functional Status None recorded. Mental Status None recorded. Family History Nothing Reported. Medical History No medical history recorded. Past Encounters Encounter ID Performer Location Encounter Start Date Encounter Closed Date Diagnosis/Indication Diagnosis SNOMED-CT Code Diagnosis ICD10 Code Diagnosis Note [id number] KATIE REYES [facility] [address] [place] [address] 09/19/2024 15:46:19 09/19/2024 16:02:33 History and physical examination, occupation [id number] Z02.1 Health Concerns Section Related Observation LastModified by Organization Detai ls LastModified Time None Recorded Concern Status LastModified by Organization Details LastModified Time None Recorded Payers Encounter Date Sequence Insurance Name Policy Number Policy Wilks Covered Member ID Wilks Member ID Guarantor Name 09/19/2024 OC-ESCREEN [employer] [id number] Oumar Rucker
[2024-10-06 09:14] VITALS: BP 163/94; PULSE 76; RESP 14; TEMP 36.8; O2SAT 96
[2024-10-06] MEDS: Lactated Ringers 1,000 ML 80 ML IVCONT (09:31)
--- NOTE | 2024-10-06 09:35 | MHC.SHP ---
Pre-Procedural Eval Section A - 24 Hr Update-Section A only Date of Service: 10/06/24 The patient is an INPATIENT: No The patient has been examined within 24 hours of the surgical procedure. The History & Physical has been completed within 30 days and I have reviewed it.: No Section B - Complete if H&P > 30 days Chief Complaint: Surveillance for colon polyp Relevant Family History (Specify if Yes): No Relevant Social History: Tobacco Use (Former smoker) Present Medications: see Short Stay Collaborative assessment Medical History: Significant History (Hypertension, BPH, obstructive uropathy) History of Previous Operations: Relevant previous surgery/procedure and date(s) (History of colonoscopy with polypectomy History of prostate surgery) Allergies: Allergies Allergy/AdvReac Type Severity Reaction Status Date / Time amoxicillin Allergy Unknown Unknown Verified 10/06/24 09:13 Review of Systems Sugical H&P ROS: Negative: Constitution, Cardiovascular, Respiratory and Gastrointestinal Exam Surgical H&P Exam: Normal: Heart, Normal: Lungs, Normal: Extremities and Normal: Abdomen Plan Diagnosis/Plan: Unchanged I have reviewed the history and physical and performed a pertinent physical examination on my patient. No changes have occurred unless specified. Time Spent With Patient Time: Total time managing care of this patient today ____ minutes.
--- NOTE | 2024-10-06 10:53 | HO.OPN-COLON ---
Colonoscopy Operative Note Operative Note Date of Service: 10/06/24 Narrative: COLONOSCOPY TILL CECUM WITH BIOPSIES Pre-op diagnosis: Surveillance of colon polyps. Post-op diagnosis:? Colon polyp, Diverticulosis, hemorrhoids Endoscopist:? Oscar Alejandro MD Anesthesia:?MAC Consent: Indications for the procedure and potential complications of bleeding, perforation, reaction to medications and missed diagnosis were discussed with the patient and informed consent was obtained. Instrument: Olympus CF H 190 L variable stiffness adult colonoscope Monitoring: Vital signs and clinical assessment, intermittent blood pressure monitoring, continuous EKG monitoring, Pulse oximetry and Carbon Dioxide monitoring were done throughout the procedure. Please see anesthesia flowsheet. Colon withdrawl time was 13 minutes. Procedure: The patient was placed in the left lateral decubitis position and pre-procedure medications were administered. After a digital rectal examination of the ano-rectum, the video colonoscope was inserted into the rectum and advanced through the colon to the cecum. The colonoscope was slowly withdrawn in a retrograde panoramic fashion and the colon mucosa was carefully examined including a retroflexed view of the rectum. Findings and interventions are described below. Procedure Difficulty: without difficulty Findings: Terminal Ileum: Not evaluated Cecum: A 3-4 mm sessile polyp - removed with a cold biopsy Ascending Colon: Normal Transverse Colon: Normal Descending Colon: Moderate diverticulosis Sigmoid Colon: Moderate diverticulosis Rectum: Normal Ano-rectum: Moderate internal hemorrhoids Colon preparation: Good after some irrigation. Misenheimer Bowel Preparation Scale Right colon; 2 Transverse colon: 2 Left colon; 2 (0 = Unprepared colon segment with mucosa not seen due to solid stool that cannot be cleared. 1 = Portion of mucosa of the colon segment seen, but other areas of the colon segment not well seen due to staining, residual stool and/or opaque liquid. 2 = Minor amount of residual staining, small fragments of stool and/or opaque liquid, but mucosa of colon segment seen well. 3 = Entire mucosa of colon segment seen well with no residual staining, small fragments of stool or opaque liquid) Impression and Post Procedure Diagnosis: Colonoscopy Findings: One small polyp was removed Moderate diverticulosis seen in the left colon Moderate hemorrhoids on retroflexed exam. Plan: I will send a letter with biopsy results. Repeat Colonoscopy in 5 years if polyps are adenomatous and due to a history of adenomatous colon polyps. Relevant handouts were given and the discharge area.
[2024-10-06 10:57] VITALS: BP 115/73; PULSE 103; RESP 16; TEMP 36.7; O2SAT 94
[2024-10-06 11:16] VITALS: BP 109/83; PULSE 92; RESP 17; TEMP 36.3; O2SAT 95
--- NOTE | 2024-10-06 12:20 | HO.POSTANES ---
Post Anesthesia Evaluation Post Anesthesia Evaluation Date of Service: 10/06/24 Vital Signs: Vital Signs Temp Pulse Resp BP Pulse Ox O2 Del Method 10/06/24 11:16 97.4 F 92 17 109/83 95 Room Air 10/06/24 10:57 98.0 F 103 H 16 115/73 94 Room Air 10/06/24 09:14 98.2 F 76 14 163/94 H 96 Room Air Anesthesia: Monitored Mental Status: Awake Pain Control: Satisfactory Nausea/Vomiting: None Hydration: Adequate Anesthesia-Related Issues: No Anes. Related Issues
== END 2024-10-06 11:59 | disposition home or self-care (01) ==
PROVIDERS: PCP Family Medicine; Visit Provider Internal Medicine Gastroenterology
PROC: 0DJD8ZZ Inspection of Lower Intestinal Tract, Via Natural or Artificial Opening Endoscopic (ICD-10-PCS; CPT 45378; principal; 2024-10-06 10:20)
DX: Z12.11 Encounter for screening for malignant neoplasm of colon (principal); Z86.0101 Personal history of adenomatous and serrated colon polyps; D12.0 Benign neoplasm of cecum; K57.30 Diverticulosis of large intestine without perforation or abscess without bleeding; K64.8 Other hemorrhoids; I10 Essential (primary) hypertension; N40.1 Benign prostatic hyperplasia with lower urinary tract symptoms; N13.8 Other obstructive and reflux uropathy; Z79.899 Other long term (current) drug therapy; Z88.1 Allergy status to other antibiotic agents; Z98.890 Other specified postprocedural states; Z87.891 Personal history of nicotine dependence
CPT/HCPCS: 45380; 88305; J2003; J2704

== ENCOUNTER → 2024-10-06 08:02 | Outpatient (BNV) | payer MEDICARE, SELFPAY | PROVIDERS: PCP Family Medicine; Visit Provider Internal Medicine Gastroenterology | DX: Z12.11 Encounter for screening for malignant neoplasm of colon (principal); Z86.0100 Personal history of colon polyps, unspecified; D12.0 Benign neoplasm of cecum; K57.90 Diverticulosis of intestine, part unspecified, without perforation or abscess without bleeding | CPT/HCPCS: 45380 ==